=== PATIENT | male | born 1975 | race Caucasian/White ===

== ENCOUNTER 2019-11-29 15:48 | Emergency (ER) | payer OTHER ==
[~2019-11-29] VITALS: Ht 170 cm; Wt 90.0 kg
[2019-11-29] MEDS ORDERED: AMLO10TA4 PO (16:07)
--- NOTE | 2019-11-29 16:14 | ED Psychosocial ---
General Chief Complaint: Substance Abuse Stated Complaint: EXCESSIVE DRINKING, VOMITING Nursing Triage Note: PT STATES HE HAS DRANK 3 LITERS OF VODKA AND RUM IN THE LAST 2 DAYS. HX OF DRINKING AND HAD TO DETOX BEFORE. HAD BEEN CLEAN FOR 8 MONTHS Source: patient Exam Limitations: no limitations History of Present Illness Date Seen by Provider: Nov 29, 2019 Time Seen by Provider: 16:11 Initial Comments To ER with Reports of alcohol use that has been excessive and caused him some nausea and vomiting. He states he is currently homeless, travels around for work. He states he is working here on the [place] currently but would consider [place] to be his home. He is not suicidal or homicidal. Timing/Duration: constant Severity: moderate Allergies and Home Medications Allergies Coded Allergies: cephalexin (Verified Allergy, Intermediate, 11/29/19) Home Medications Amlodipine Besylate 10 Mg Tablet, 10 MG PO BID, (Reported) Patient Home Medication List Home Medication List Reviewed: Yes Review of Systems Constitutional: see HPI EENTM: see HPI Respiratory: no symptoms reported Cardiovascular: no symptoms reported Gastrointestinal: No abdominal pain; nausea, vomiting Musculoskeletal: no symptoms reported Skin: no symptoms reported Past Wynwmza-Tonkkk-Mxpxum Hx Patient Social History Alcohol Use: Regular Use Alcohol Beverage of Choice: Rum, Vodka Recreational Drug Use: No Smoking Status: Never a Smoker Recent Foreign Travel: No Contact w/Someone Who Travel: No Recent Infectious Disease Expo: No Recent Hopitalizations: No Seasonal Allergies Seasonal Allergies: No Past Medical History Surgeries: No Respiratory: No Cardiac: Yes Hypertension Neurological: No Genitourinary: No Gastrointestinal: No Musculoskeletal: No Endocrine: No HEENT: No Cancer: No Psychosocial: No Integumentary: No Physical Exam Vital Signs - First Documented 11/29/19 15:55 Temp 36.7 Pulse 86 Resp 20 B/P (MAP) 157/93 (114) Pulse Ox 100 O2 Delivery Room Air Capillary Refill : Less Than 3 Seconds Height, Weight, BMI Height: '" Weight: lbs. oz. kg; 31.00 BMI Method: General Appearance: WD/WN, no apparent distress, other (disheveled, cooperative. Walks from triage to room 10 with me without assistance. His speech is slurred, eyes are bloodshot.) Neck: non-tender, full range of motion Respiratory: normal breath sounds, no respiratory distress, no accessory muscle use Cardiovascular: regular rate, rhythm, no murmur Gastrointestinal: normal bowel sounds, soft Neurologic/Psychiatric: alert, normal mood/affect, oriented x 3 Appearance/Memory: appropriate insight, disheveled Behavior/Eye Contact: cooperative, good eye contact Thoughts/Hallucinations: no apparent hallucination Skin: normal color, warm/dry Progress/Results/Core Measures Results/Orders Lab Results Laboratory Tests Test 11/29/19 16:25 11/29/19 16:50 Range/Units White Blood Count 4.7 4.3-11.0 10^3/uL Red Blood Count 5.87 H 4.35-5.85 10^6/uL Hemoglobin 16.7 13.3-17.7 G/DL Hematocrit 47 40-54 % Mean Corpuscular Volume 81 80-99 FL Mean Corpuscular Hemoglobin 28 25-34 PG Mean Corpuscular Hemoglobin Concent 35 32-36 G/DL Red Cell Distribution Width 13.9 10.0-14.5 % Platelet Count 223 130-400 10^3/uL Mean Platelet Volume 10.2 7.4-10.4 FL Neutrophils (%) (Auto) 56 42-75 % Lymphocytes (%) (Auto) 33 12-44 % Monocytes (%) (Auto) 10 0-12 % Eosinophils (%) (Auto) 0 0-10 % Basophils (%) (Auto) 1 0-10 % Neutrophils # (Auto) 2.7 1.8-7.8 X 10^3 Lymphocytes # (Auto) 1.6 1.0-4.0 X 10^3 Monocytes # (Auto) 0.5 0.0-1.0 X 10^3 Eosinophils # (Auto) 0.0 0.0-0.3 10^3/uL Basophils # (Auto) 0.0 0.0-0.1 10^3/uL Prothrombin Time 14.1 12.2-14.7 SEC INR Comment 1.1 0.8-1.4 Sodium Level 144 135-145 MMOL/L Potassium Level 4.0 3.6-5.0 MMOL/L Chloride Level 105 98-107 MMOL/L Carbon Dioxide Level 27 21-32 MMOL/L Anion Gap 12 5-14 MMOL/L Blood Urea Nitrogen 8 7-18 MG/DL Creatinine 1.33 H 0.60-1.30 MG/DL Estimat Glomerular Filtration Rate 59 BUN/Creatinine Ratio 6 Glucose Level 110 H 70-105 MG/DL Calcium Level 10.2 H 8.5-10.1 MG/DL Corrected Calcium 9.8 8.5-10.1 MG/DL Total Bilirubin 0.6 0.1-1.0 MG/DL Aspartate Amino Transf (AST/SGOT) 70 H 5-34 U/L Alanine Aminotransferase (ALT/SGPT) 64 H 0-55 U/L Alkaline Phosphatase 115 40-136 U/L Total Protein 7.5 6.4-8.2 GM/DL Albumin 4.5 3.2-4.5 GM/DL Lipase 48 8-78 U/L Serum Alcohol 200 H <10 MG/DL Urine Color YELLOW Urine Clarity CLEAR Urine pH 8.5 5-9 Urine Specific [place] 1.015 L 1.016-1.022 Urine Protein NEGATIVE NEGATIVE Urine Glucose (UA) NEGATIVE NEGATIVE Urine Ketones NEGATIVE NEGATIVE Urine Nitrite NEGATIVE NEGATIVE Urine Bilirubin NEGATIVE NEGATIVE Urine Urobilinogen 0.2 < = 1.0 MG/DL Urine Leukocyte Esterase NEGATIVE NEGATIVE Urine RBC (Auto) NEGATIVE NEGATIVE Urine RBC NONE /HPF Urine WBC NONE /HPF Urine Squamous Epithelial Cells RARE /HPF Urine Crystals PRESENT H /LPF Urine Amorphous Sediment RARE OZZY PHOSPHATE H /LPF Urine Bacteria TRACE /HPF Urine Casts NONE /LPF Urine Mucus SMALL H /LPF Urine Culture Indicated NO Urine Opiates Screen NEGATIVE NEGATIVE Urine Oxycodone Screen NEGATIVE NEGATIVE Urine Methadone Screen NEGATIVE NEGATIVE Urine Propoxyphene Screen NEGATIVE NEGATIVE Urine Barbiturates Screen NEGATIVE NEGATIVE Ur Tricyclic Antidepressants Screen NEGATIVE NEGATIVE Urine Phencyclidine Screen NEGATIVE NEGATIVE Urine Amphetamines Screen NEGATIVE NEGATIVE Urine Methamphetamines Screen NEGATIVE NEGATIVE Urine Benzodiazepines Screen NEGATIVE NEGATIVE Urine Cocaine Screen NEGATIVE NEGATIVE Urine Cannabinoids Screen NEGATIVE NEGATIVE My Orders Orders - TOMA FARAH APRN Alcohol (11/29/19 16:01) Cbc With Automated Diff (11/29/19 16:01) Comprehensive Metabolic Panel (11/29/19 16:01) Protime With Inr (11/29/19 16:01) Ua Culture If Indicated (11/29/19 16:01) Drug Screen Stat (Urine) (11/29/19 16:01) Lipase (11/29/19 16:01) Ns Iv 1000 Ml (Sodium Chloride 0.9%) (11/29/19 16:15) Ondansetron Injection (Zofran Injectio (11/29/19 16:15) Famotidine Injection (Pepcid Injection) (11/29/19 16:15) Antacid Suspension (Mylanta Suspension (11/29/19 16:15) Lidocaine 2% Viscous 15 Ml (Xylocaine Vi (11/29/19 16:15) Medications Given in ED Current Medications Medications Dose Ordered Sig/Talha Route Start Time Stop Time Status Last Admin Dose Admin Famotidine 20 mg ONCE ONCE IVP 11/29/19 16:15 11/29/19 16:16 DC 11/29/19 16:26 20 MG Ondansetron HCl 8 mg ONCE ONCE IVP 11/29/19 16:15 11/29/19 16:16 DC 11/29/19 16:26 8 MG Vital Signs/I&O 11/29/19 15:55 Temp 36.7 Pulse 86 Resp 20 B/P (MAP) 157/93 (114) Pulse Ox 100 O2 Delivery Room Air Blood Pressure Mean: 114 Departure Impression Primary Impression: Alcohol intoxication Qualified Codes: F10.920 - Alcohol use, unspecified with intoxication, uncomplicated Disposition: 01 HOME, SELF-CARE Condition: Stable Departure-Patient Inst. Decision time for Depature: 16:13 Referrals: NO,LOCAL PHYSICIAN (PCP) Primary Care Physician CHACHA IRAHETA MD Patient Instructions: ALCOHOL AND SUBSTANCE ABUSE Add. Discharge Instructions: 1. Follow-up with Dr. Chacha Iraheta at [facility] to discuss treatment options for your alcohol use disorder. Scripts Ondansetron (Ondansetron Odt) 8 Mg Tab.rapdis 8 MG PO Q6H PRN for NAUSEA/VOMITING, #10 TAB Prov: TOMA FARAH APRN 11/29/19 TOMA FARAH APRN Nov 29, 2019 16:14
[2019-11-29] MEDS ORDERED: NS IV 1000 ML 1,000 ML IV SCH (16:15)
[2019-11-29] MEDS ORDERED: FAMOTIDINE 20MG/2ML IV (PEPCID) IVP ONE (16:15)
[2019-11-29] MEDS ORDERED: LIDOCAINE 2% VISCOUS 15 ML UDC PO ONE (16:15)
[2019-11-29] MEDS ORDERED: ONDANSETRON 4 MG/2 ML (SDV) Z0FRAN IVP ONE (16:15)
[2019-11-29] MEDS ORDERED: ANTACID SUSP 30 ML UDC (MYLANTA) PO ONE (16:15)
[2019-11-29 16:33] LABS: BASOPHILS % (AUTO) 1 % (0-10); EOSINOPHILS % (AUTO) 0 % (0-10); HEMATOCRIT 47 % (40-54); HEMOGLOBIN 16.7 G/DL (13.3-17.7); LYMPHOCYTES # (AUTO) 1.6 X 10^3 (1.0-4.0); LYMPHOCYTES % (AUTO) 33 % (12-44); MEAN CORPUSCULAR HEMOGLOBIN 28 PG (25-34); MEAN CORPUSCULAR HGB CONC 35 G/DL (32-36); MEAN CORPUSCULAR VOLUME 81 FL (80-99); MEAN PLATELET VOLUME 10.2 FL (7.4-10.4); MONOCYTES # (AUTO) 0.5 X 10^3 (0.0-1.0); MONOCYTES % (AUTO) 10 % (0-12); NEUTROPHILS # (AUTO) 2.7 X 10^3 (1.8-7.8); NEUTROPHILS % (AUTO) 56 % (42-75); PLATELET COUNT 223 10^3/uL (130-400); RED CELL DISTRIBUTION WIDTH 13.9 % (10.0-14.5); WHITE BLOOD COUNT 4.7 10^3/uL (4.3-11.0)
[2019-11-29 16:43] LABS: INR 1.1 (0.8-1.4); PROTHROMBIN TIME PATIENT 14.1 SEC (12.2-14.7)
[2019-11-29 16:49] LABS: ALBUMIN 4.5 GM/DL (3.2-4.5); BILIRUBIN,TOTAL 0.6 MG/DL (0.1-1.0); CALCIUM 10.2 MG/DL (8.5-10.1); CREATININE SERUM 1.33 MG/DL (0.60-1.30); TOTAL PROTEIN 7.5 GM/DL (6.4-8.2)
[2019-11-29 17:07] LABS: BILIRUBIN,URINE NEGATIVE (NEGATIVE); CLARITY,URINE CLEAR; COLOR,URINE YELLOW; GLUCOSE, URINE (UA) NEGATIVE (NEGATIVE); KETONES,URINE NEGATIVE (NEGATIVE); LEUKOCYTE ESTERASE ,URINE NEGATIVE (NEGATIVE); NITRITE,URINE NEGATIVE (NEGATIVE); PH,URINE 8.5 (5-9); PROTEIN,URINE NEGATIVE (NEGATIVE)
[2019-11-29 17:22] LABS: AMPHETAMINE SCREEN, URINE NEGATIVE (NEGATIVE); BARBITURATE SCREEN URINE NEGATIVE (NEGATIVE); BENZODIAZEPINES SCREEN URINE NEGATIVE (NEGATIVE); CANNABINOID SCREEN, URINE NEGATIVE (NEGATIVE); COCAINE SCREEN URINE NEGATIVE (NEGATIVE); METHADONE STAT NEGATIVE (NEGATIVE); METHAMPHETAMINE SCREEN URINE S NEGATIVE (NEGATIVE); OPIATE SCREEN URINE NEGATIVE (NEGATIVE); OXYCODONE STAT NEGATIVE (NEGATIVE); PROPOXYPHENE STAT NEGATIVE (NEGATIVE); TRICYCLIC ANTIDEPRESSANTS SCRE NEGATIVE (NEGATIVE)
[2019-11-29 17:24] LABS: AMORPHOUS SEDIMENT,UR RARE AMOR PHOSPHATE /LPF; BACTERIA,URINE TRACE /HPF; SQUAMOUS EPITHELIAL CELL,UR RARE /HPF
[2019-11-29] MEDS ORDERED: ONDA8TAB13 PO (17:29)
[2019-11-29] MEDS ORDERED: LORA-405 PO (17:29)
[2019-11-29] MEDS ORDERED: PROMETHAZINE INJ 25 MG/ML (PHENERGAN) AMP IVP ONE (17:45)
[2019-11-29] MEDS ORDERED: RX-LORAZEPAM (ATIVAN) 0.5 MG TAB PPK#4 PO STA (17:45)
[2019-11-29] MEDS ORDERED: LORazepam INJ 2 MG/ML (ATIVAN) VIAL IVP ONE (17:45)
[2019-11-29 18:15] VITALS: BP 138/107
--- OUTSIDE RECORDS SUMMARY | 2019-12-03 21:16 | XMS REPORT | Continuity of Care Document ---
Author Organization Unknown Address Unknown Phone Unavailable Allergies Active Description Code Type Severity Reaction Onset Reported/Identified Relationship to Patient Clinical Status Yes cephalexin [id number] Drug Allerg y Moderate N/A 11/29/2019 Medications There is no data. Problems There is no data. Procedures There is no data. Results Test Result Range Complete blood count (CBC) with automate d white blood cell (WBC) differential - 11/29/19 16:25 Blood leukocytes automated count (number/volume) 4.7 10*3/uL 4.3-11.0 Blood erythrocytes automated count (number/volume) 5.87 10*6/uL 4.35-5.85 Venous blood hemoglobin measurement (mass/volume) 16.7 g/dL 13.3-17.7 Blood hematocrit (volume fraction) 47 % 40-54 Automated erythrocyte mean corpuscular volume 81 [ foz_us] 80-99 Automated erythrocyte mean corpuscular h emoglobin (mass per erythrocyte) 28 pg 25-34 Automated erythrocyte mean corpuscular h emoglobin concentration measurement (mass/volume) 35 g/dL 32-36 Automated erythrocyte distribution width ratio 13. 9 % 10.0- 14.5 Automated blood platelet count (count/volume) 223 10*3/uL 130-400 Automated blood platelet mean volume measurement 10.2 [foz_us] 7.4-10.4 Automated blood neutrophils/100 leukocytes 56 % 42-75 Automated blood lymphocytes/100 leukocytes 33 % 12-44 Blood monocytes/100 leukocytes 10 % 0-12 Automated blood eosinophils/100 leukocytes 0 % 0-10 Automated blood basophils/100 leukocytes 1 % 0-10 Blood neutrophils automated count (number/volume) 2.7 10*3 1.8-7.8 Blood lymphocytes automated count (number/volume) 1.6 10*3 1.0-4.0 Blood monocytes automated count (number/volume) 0. 5 10*3 0.0-1.0 Automated eosinophil count 0.0 10*3/uL 0 .0-0.3 Automated blood basophil count (count/volume) 0.0 10*3/uL 0.0-0.1 PT panel in platelet poor plasma by coag ulation assay - 11/29/19 16:25 Prothrombin time (PT) in platelet poor plasma by coagu lation assay 14.1 s 12.2-14.7 INR in platelet poor plasma or blood by coagulation as say 1.1 0.8-1.4 Comprehensive metabolic panel - 11/29/19 16:25 Serum or plasma sodium measurement (moles/volume) 144 mmol/L 135-145 Serum or plasma potassium measurement (moles/volume) 4.0 mmol/L 3.6-5.0 Serum or plasma chloride measurement (moles/volume) 105 mmol/L 98-107 Carbon dioxide 27 mmol/L 21-32 Serum or plasma anion gap determination (moles/volume) 12 mmol/L 5-14 Serum or plasma urea nitrogen measurement (mass/volume ) 8 mg/dL 7-18 Serum or plasma creatinine measurement (mass/volume) 1.33 mg/dL 0.60-1.30 Serum or plasma urea nitrogen/creatinine mass ratio 6 NRG Serum or plasma creatinine measurement w ith calculation of estimated glomerular filtration rate 59 NRG Serum or plasma glucose measurement (mass/volume) 110 mg/dL 70-105 Serum or plasma calcium measurement (mass/volume) 10.2 mg/dL 8.5-10.1 Serum or plasma total bilirubin measurement (mass/volu me) 0.6 mg/dL 0.1-1.0 Serum or plasma alkaline phosphatase mindy surement (enzymatic activity/volume) 115 U/L 40-136 Serum or plasma aspartate aminotransfera se measurement (enzymatic activity/volume) 70 U/L 5-34 Serum or plasma alanine aminotransferase measurement (enzymatic activity/volume) 64 U/L 0-55 Serum or plasma protein measurement (mass/volume) 7.5 g/dL 6.4-8.2 Serum or plasma albumin measurement (mass/volume) 4.5 g/dL 3.2-4.5 CALCIUM CORRECTED 9.8 mg/dL 8.5-10.1 Lipase - 11/29/19 16:25 Lipase 48 U/L 8-78 Serum or plasma ethanol measurement (mas s/volume) - 11/29/19 16:25 Serum or plasma ethanol measurement (mass/volume) 200 mg/dL <10 Urine drug screening test - 11/29/19 16: 50 Urine phencyclidine detection by screening method NEGATIVE NEGATIVE Urine benzodiazepines detection by screening method NEGATIVE NEGATIVE Urine cocaine detection NEGATIVE NEGATI VE Urine amphetamines detection by screening method N EGATIVE NEGATIVE Urine methamphetamine detection by screening method NEGATIVE NEGATIVE Urine cannabinoids detection by screening method N EGATIVE NEGATIVE Urine opiates detection by screening method NEGATI VE NEGATIVE Urine barbiturates detection NEGATIVE N EGATIVE Screening urine tricyclic antidepressants detection NEGATIVE NEGATIVE Urine methadone detection by screening method NEGA TIVE NEGATIVE Urine oxycodone detection NEGATIVE NEGA TIVE Urine propoxyphene detection NEGATIVE N EGATIVE Complete urinalysis with reflex to cultu re - 11/29/19 16:50 Urine color determination YELLOW NRG Urine clarity determination CLEAR NR G Urine pH measurement by test strip 8.5 5-9 Specific gravity of urine by test strip 1.015 1.016-1.022 Urine protein assay by test strip, semi-quantitative NEGATIVE NEGATIVE Urine glucose detection by automated test strip NE GATIVE NEGATIVE Erythrocytes detection in urine sediment by light micr oscopy NEGATIVE NEGATIVE Urine ketones detection by automated test strip NE GATIVE NEGATIVE Urine nitrite detection by test strip NEGATIVE NEGATIVE Urine total bilirubin detection by test strip NEGA TIVE NEGATIVE Urine urobilinogen measurement by automated test strip (mass/volume) 0.2 mg/dL < = 1.0 Urine leukocyte esterase detection by dipstick NEG ATIVE NEGATIVE Automated urine sediment erythrocyte cou nt by microscopy (number/high power field) NONE NRG Automated urine sediment leukocyte count by microscopy (number/high power field) NONE NRG Bacteria detection in urine sediment by light microsco py TRACE NRG Squamous epithelial cells detection in u rine sediment by light microscopy RARE NRG Crystals detection in urine sediment by light microsco py PRESENT NRG Casts detection in urine sediment by light microscopy NONE NRG Mucus detection in urine sediment by light microscopy SMALL NRG Complete urinalysis with reflex to culture NO NRG Amorphous sediment detection in urine sediment by ligh t microscopy RARE OZZY PHOSPHATE NRG Encounters ACCT No. Visit Date/Time Discharge Status Pt. Type Provider Facility Loc./Unit Complaint [id number] 10/28/2019 11:30:00 10/28/2019 23:59: 59 CLS Outpatient MELITON LAC, SHAYY [facility] [id number] 11/29/2019 15:51:00 020 18:15:00 DIS Emergency TOMA FARAH APRN Via [facility] ER EXCESSIVE DRINKING, ALIYA FARNSWORTH
== END 2019-11-29 18:15 | disposition home or self-care (01) ==
LOC: ER 15:51
DX: F10.929 Alcohol use, unspecified with intoxication, unspecified (principal); I10 Essential (primary) hypertension; Z88.1 Allergy status to other antibiotic agents; Y90.7 Blood alcohol level of 200-239 mg/100 ml
CPT/HCPCS: 36415; 80053; 80306; 80320; 81000; 83690; 85025; 85610

== ENCOUNTER 2020-02-15 02:14 | Emergency (ER) | payer OTHER ==
[~2020-02-15] VITALS: Ht 170.1 cm; Wt 90.7 kg
[~2020-02-15 02:14] MED LIST: AMLO10TA4 PO; LORA-405 PO; ONDA8TAB13 PO
--- OUTSIDE RECORDS SUMMARY | 2020-02-15 02:25 | XMS REPORT | Continuity of Care Document ---
Author Organization Unknown Address Unknown Phone Unavailable Allergies Active Description Code Type Severity Reaction Onset Reported/Identified Relationship to Patient Clinical Status Yes cephalexin [id number] Drug Allerg y Moderate N/A 11/29/2019 Medications There is no data. Problems Date Dx Coded Attending Type Code Diagnosis Diagnosed By 12/05/2019 TOMA FARAH APRN Ot F10.929 ALCOHOL USE, UNSPECIFIED WITH INTOXICATI 12/05/2019 TOMA FARAH APRN Ot I10 ESSENTIAL (PRIMARY) HYPERTENSION 12/05/2019 TOMA FARAH APRN Ot Y90 .7 BLOOD ALCOHOL LEVEL OF 200-239 MG/100 ML 12/05/2019 TOMA FARAH APRN Ot Z88 .1 ALLERGY STATUS TO OTHER ANTIBIOTIC AGENT Procedures There is no data. Results Test [...] Status Pt. Type Provider Facility Loc./Unit Complaint [id number] 01/14/2020 16:20:00 01/14/2020 23:59: 59 CLS Outpatient MELITON KENZIE [facility]AYY [facility] [id number] 11/29/2019 15:51:00 020 18:15:00 DIS Outpatient TOMA FARAH APRN Via [facility] ER EXCESSIVE DRINKING, VO MITING [id number] 02/15/2020 02:17:[address] Emergency JOSEFA ZARATE DO [facility] ER DETOX
[2020-02-15] MEDS ORDERED: LACTATED RINGERS 1,000 ML IV ONE ×2 (02:37→03:26)
[2020-02-15] MEDS ORDERED: PANTOPRAZOLE 40 MG (PROTONIX) VIAL IV ONE (03:00)
[2020-02-15] MEDS ORDERED: ONDANSETRON 4 MG/2 ML (SDV) Z0FRAN IVP ONE (03:00)
[2020-02-15 03:17] LABS: BASOPHILS % (AUTO) 1 % (0-10); EOSINOPHILS % (AUTO) 0 % (0-10); HEMATOCRIT 46 % (40-54); HEMOGLOBIN 16.2 G/DL (13.3-17.7); LYMPHOCYTES # (AUTO) 1.6 X 10^3 (1.0-4.0); LYMPHOCYTES % (AUTO) 27 % (12-44); MEAN CORPUSCULAR HEMOGLOBIN 28 PG (25-34); MEAN CORPUSCULAR HGB CONC 35 G/DL (32-36); MEAN CORPUSCULAR VOLUME 81 FL (80-99); MEAN PLATELET VOLUME 9.9 FL (7.4-10.4); MONOCYTES # (AUTO) 0.6 X 10^3 (0.0-1.0); MONOCYTES % (AUTO) 11 % (0-12); NEUTROPHILS # (AUTO) 3.8 X 10^3 (1.8-7.8); NEUTROPHILS % (AUTO) 62 % (42-75); PLATELET COUNT 237 10^3/uL (130-400); RED CELL DISTRIBUTION WIDTH 15.7 % (10.0-14.5)
[2020-02-15 03:31] LABS: CHLORIDE 105 MMOL/L (98-107)
[2020-02-15 03:32] LABS: ALBUMIN 4.1 GM/DL (3.2-4.5); POTASSIUM 3.6 MMOL/L (3.6-5.0); SODIUM 141 MMOL/L (135-145)
[2020-02-15 03:33] LABS: CALCIUM 8.5 MG/DL (8.5-10.1)
[2020-02-15 03:34] LABS: GLUCOSE 170 MG/DL (70-105)
[2020-02-15 03:35] LABS: CARBON DIOXIDE 22 MMOL/L (21-32); TOTAL PROTEIN 6.8 GM/DL (6.4-8.2)
[2020-02-15 03:36] LABS: BILIRUBIN,TOTAL 1.3 MG/DL (0.1-1.0)
[2020-02-15 03:38] LABS: BILIRUBIN,URINE NEGATIVE (NEGATIVE); CLARITY,URINE CLEAR; COLOR,URINE YELLOW; GLUCOSE, URINE (UA) NEGATIVE (NEGATIVE); KETONES,URINE NEGATIVE (NEGATIVE); LEUKOCYTE ESTERASE ,URINE NEGATIVE (NEGATIVE); NITRITE,URINE NEGATIVE (NEGATIVE); PH,URINE 7.5 (5-9); PROTEIN,URINE 1+ (NEGATIVE)
[2020-02-15 03:38] LABS: ALKALINE PHOSPHATASE 89 U/L (40-136); CREATININE SERUM 1.23 MG/DL (0.60-1.30); GFR ESTIMATED > 60
[2020-02-15 03:39] LABS: BUN/CREATININE RATIO 7
[2020-02-15 03:41] LABS: ALANINE AMINOTRANSFERASE 81 U/L (0-55); SALICYLATE < 5.0 MG/DL (5.0-20.0)
[2020-02-15 03:46] LABS: ACETAMINOPHEN < 10 UG/ML (10-30)
[2020-02-15 03:52] LABS: BACTERIA,URINE NEGATIVE /HPF; SQUAMOUS EPITHELIAL CELL,UR RARE /HPF; URINE OTHER NO /HPF
[2020-02-15] MEDS ORDERED: LORazepam INJ 2 MG/ML (ATIVAN) VIAL ONE (03:54)
[2020-02-15 03:58] LABS: AMPHETAMINE SCREEN, URINE NEGATIVE (NEGATIVE); BENZODIAZEPINES SCREEN URINE NEGATIVE (NEGATIVE); COCAINE SCREEN URINE NEGATIVE (NEGATIVE)
[2020-02-15 03:59] LABS: BARBITURATE SCREEN URINE NEGATIVE (NEGATIVE); CANNABINOID SCREEN, URINE NEGATIVE (NEGATIVE); METHADONE STAT NEGATIVE (NEGATIVE); METHAMPHETAMINE SCREEN URINE S NEGATIVE (NEGATIVE); OPIATE SCREEN URINE NEGATIVE (NEGATIVE); OXYCODONE STAT NEGATIVE (NEGATIVE); PROPOXYPHENE STAT NEGATIVE (NEGATIVE); TRICYCLIC ANTIDEPRESSANTS SCRE NEGATIVE (NEGATIVE)
[2020-02-15] MEDS ORDERED: LORazepam INJ 2 MG/ML (ATIVAN) VIAL IVP ONE (04:00)
[2020-02-15 04:01] LABS: TSH (THYROID ANALYZER) 1.15 UIU/ML (0.35-4.94)
[2020-02-15] MEDS ORDERED: cloNIDine 0.2 MG (CATAPRES) TAB PO ONE (04:15)
[2020-02-15] MEDS ORDERED: RX-LORAZEPAM (ATIVAN) 0.5 MG TAB PPK#4 PO STA (04:55)
[2020-02-15] MEDS ORDERED: RX-CLOnidine 0.1 MG TAB PPK# 6 PO STA (04:55)
--- NOTE | 2020-02-15 05:00 | ED Psychosocial ---
General Chief Complaint: Substance Abuse Stated Complaint: DETOX Nursing Triage Note: PATIENT STATES THAT HE IS HERE BECAUSE OF "ALCOHOL DETOX". HE IS UNABLE TO RECALL WHEN HIS LAST DRINK WAS. HE DENIES CURRENT DRUG ABUSE, BUT SAID IN THE PAST HE HAS USED MARIJUANA. Source: patient (VERY DIFFICULT HISTORIAN AND SPEECH IS VERY ERRATIC) History of Present Illness Date Seen by Provider: February 15, 2020 Time Seen by Provider: 02:35 Initial Comments PT ARRIVES-STATES HE WALKED HERE "FROM HIS APARTMENT [place]CROSS [place] [address]" PT STATES HE IS HERE FOR "DETOX" PT IS UNABLE TO STATE ANYTHING ABOUT HOW MUCH HE DRINKS, WHAT HE DRINKS, HOW LONG HE HAS BEEN DRINKING, OR WHEN HE LAST HAD ANY ALCOHOL, AND ANSWERS "I DON'T KNOW" TO MOST QUESTIONS HE IS ASKED LATER, AT ONE POINT, HE STATES HE DRINKS "A LITER" OF "ANYTHING" A DAY PT DOES STATE HE WAS IN SOME SORT OF REHAB IN IN [place] PT IS UNABLE TO STATE IF HE HAS EVER HAD A SEIZURE OR "DT'S" IF HE STOPS DRINKING PT DENIES ANY HISTORY OF DRUG USE, BUT ON PREVIOUS VISIT, HE HAD REPORTED THAT HE USED MARIJUANA PT STATES TODAY THAT HE IS NOT HOMELESS AND HE "WORKS IN [employer]" STATES THAT HE DRIVES TO WORK AND "LIVES IN AN APARTMENT [place] [address]" HE STATES HE DID NOT WORK TODAY, BUT CANNOT STATE WHEN HE LAST WORKED. PT WAS HERE 11/29/19 FOR ALCOHOL INTOXICATION, AND HAD REPORTED AT THAT TIME HE WAS HOMELESS, AND "TRAVELS AROUND FOR WORK" AND HAD BEEN "BUILDING [place]", AND STATED THAT HE CONSIDERED [place] HIS HOME. PCP: CHALINO-MALDONADO Allergies and Home Medications Allergies Coded Allergies: cephalexin (Verified Allergy, Intermediate, 11/29/19) Home Medications Amlodipine Besylate 10 Mg Tablet, 10 MG PO BID, (Reported) Patient Home Medication List Home Medication List Reviewed: Yes Review of Systems Constitutional: no symptoms reported Respiratory: no symptoms reported Cardiovascular: no symptoms reported Gastrointestinal: no symptoms reported; No nausea, No vomiting Genitourinary: no symptoms reported Musculoskeletal: no symptoms reported Skin: no symptoms reported Psychiatric/Neurological: See HPI, Anxiety Past Grnzbou-Jtwmdr-Qwhjbm Hx Past Med/Social Hx: Reviewed and Corrections made Patient Social History Alcohol Use: Regular Use Number of Drinks Today: FF Alcohol Beverage of Choice: Rum, Cheap Liquor, Vodka Recreational Drug Use: Yes (THC) Drug of Choice: PAST MARIJUANA USE Smoking Status: Former Smoker Type Used: Cigarettes Recent Foreign Travel: No Contact w/Someone Who Travel: No Recent Infectious Disease Expo: No Recent Hopitalizations: No Physical Abuse: No Sexual Abuse: No Mistreated: No Fear: No Seasonal Allergies Seasonal Allergies: No Past Medical History Surgeries: No Respiratory: No Cardiac: Yes (HAS NOT BEEN TAKING HIS MEDICATION-NORVASC) Hypertension Neurological: No Genitourinary: No Gastrointestinal: No Musculoskeletal: No Endocrine: No HEENT: No Cancer: No Psychosocial: Yes (ALCOHOLISM) Integumentary: No Blood Disorders: No Adverse Reaction/Blood Tranf: No Family Medical History Alcoholism 19 FATHER Hypertension 19 FATHER Physical Exam Vital Signs - First Documented 02/15/20 02/15/20 02:31 05:20 Temp 36.9 Pulse 120 Resp 24 B/P (MAP) 145/117 (126) Pulse Ox 98 O2 Delivery Room Air Capillary Refill : Less Than 3 Seconds Height, Weight, BMI Height: '" Weight: lbs. oz. kg; 31.00 BMI Method: General Appearance: WD/WN, no apparent distress, other (UNKEMPT, CONSTANT MOVEMENTS--CANNOT SIT, STAND OR LAY STILL. 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 DIFFICULT TO DETERMINE ORIENTATION; NO TREMORS NOTED. ) Appearance/Memory: disheveled, impaired recent memory, impaired remote memory Behavior/Eye Contact: cooperative, increased rate of speech; No belligerent, No compulsive Thoughts/Hallucinations: no apparent hallucination, other (NO SUICIDAL IDEATIONS) Skin: normal color, warm/dry Progress/Results/Core Measures Results/Orders Lab Results My Orders Medications Given in ED Vital Signs/I&O Blood Pressure Mean: 126 Progress Progress Note : Progress Note NO DETERIORATION IN PT'S CONDITION PT WAS GIVEN MEDICATION FOR BLOOD PRESSURE AND TACHYCARDIA WITH IMPROVEMENT--PT IS SUPPOSED TO TAKE NORVASC, BUT HAS NO IDEA WHEN HE LAST TOOK ANY MEDICATION ADVISED PT THAT WE DID NOT HAVE A "DETOX" UNIT HERE, AND HE DID NOT OTHERWISE MEET CRITERIA FOR HOSPITAL ADMIT HERE. ADVISED THAT HE WAS ESTABLISHED WITH [facility], I DISCUSSED WITH HIM THAT THEY HAVE AN OUTPATIENT TREATMENT PROGRAM. SENT HOME WITH ATIVAN AND CLONIDINE TAKE HOME PACKS, AND ADVISED PT TO FOLLOW UP WITH [facility] LATER TODAY Initial ECG Impression Date: February 15, 2020 Initial ECG Impression Time: 02:54 Initial ECG Rate: 99 Initial ECG Rhythm: Normal Sinus Initial ECG Impression: Normal Departure Impression Primary Impression: Alcohol abuse Additional Impression: HTN (hypertension) Disposition: 01 HOME, SELF-CARE Condition: Stable Departure-Patient Inst. Referrals: [facility] Patient Instructions: ALCOHOL AND SUBSTANCE ABUSE, High Blood Pressure (DC) Add. Discharge Instructions: TAKE YOUR BLOOD PRESSURE MEDICATION EVERY DAY PRESCRIBED NO ALCOHOL!!!!! FOLLOW UP WITH [facility] TODAY FOR OUTPATIENT ALCOHOL AND DRUG ABUSE TREATMENT All discharge instructions reviewed with patient and/or family. Voiced understanding. JOSEFA ZARATE DO February 15, 2020 05:00
[2020-02-15 05:20] VITALS: BP 140/105
== END 2020-02-15 05:24 | disposition home or self-care (01) ==
LOC: EDUNIT# 02:14 → ER 02:17
DX: F10.229 Alcohol dependence with intoxication, unspecified (principal); I10 Essential (primary) hypertension; Z88.1 Allergy status to other antibiotic agents; Z87.891 Personal history of nicotine dependence; Z91.14 Patient's other noncompliance with medication regimen; Z82.49 Family history of ischemic heart disease and other diseases of the circulatory system
CPT/HCPCS: 36415; 80053; 80306; 80320; 80329; 81000; 84443; 85025; 93005; 93041

== ENCOUNTER 2020-04-23 01:10 | Emergency (ER) | payer OTHER ==
[~2020-04-23] VITALS: Ht 172 cm; Wt 90.7 kg
--- OUTSIDE RECORDS SUMMARY | 2020-04-23 01:18 | XMS REPORT | Continuity of Care Document ---
Author Organization Unknown Address Unknown Phone Unavailable Allergies Active Description Code Type Severity Reaction Onset Reported/Identified Relationship to Patient Clinical Status Yes cephalexin [id number] Drug Allerg y Moderate N/A 11/29/2019 Medications There is no data. Problems Date Dx Coded Attending Type Code Diagnosis Diagnosed By 11/29/2019 TOMA FARAH APRN Ot F10.929 ALCOHOL USE, UNSPECIFIED WITH INTOXICATI 11/29/2019 TOMA FARAH APRN Ot I10 ESSENTIAL (PRIMARY) HYPERTENSION 11/29/2019 TOMA FARAH APRN Ot Y90 .7 BLOOD ALCOHOL LEVEL OF 200-239 MG/100 ML 11/29/2019 TOMA FARAH APRN Ot Z88 .1 ALLERGY STATUS TO OTHER ANTIBIOTIC AGENT 12/05/2019 TOMA FARAH APRN Ot F10.929 ALCOHOL USE, UNSPECIFIED WITH INTOXICATI 12/05/2019 TOMA FARAH RIVET HE[employer] GAS Ot I10 ESSENTIAL (PRIMARY) HYPERTENSION 12/05/2019 TOMA FARAH APRN Ot Y90 .7 BLOOD ALCOHOL LEVEL OF 200-239 MG/100 ML 12/05/2019 TOMA FARAH APRN Ot Z88 .1 ALLERGY STATUS TO OTHER ANTIBIOTIC AGENT 02/15/2020 JOE ZARATE DOA Valeriy Ot F10.129 ALCOHOL ABUSE WITH INTOXICATION, UNSPECI 02/15/2020 JOSEFA ZARATE DO Ot F10.229 ALCOHOL DEPENDENCE WITH INTOXICATION, UN 02/15/2020 JOSEFA ZARATE DO Ot I10 ESSENTIAL (PRIMARY) HYPERTENSION 02/15/2020 JOSEFA ZARATE DO Ot Z82.49 FAMILY HX OF ISCHEM HEART DIS AND OTH DI 02/15/2020 JOSEFA ZARATE DO Ot Z87.891 PERSONAL HISTORY OF NICOTINE DEPENDENCE 02/15/2020 JOSEFA ZARATE DO Ot Z88.1 ALLERGY STATUS TO OTHER ANTIBIOTIC AGENT 02/15/2020 JOE ZARATE DOA Valeriy Ot Z91.14 PATIENT'S OTHER NONCOMPLIANCE WITH MEDIC Procedures There is no data. Results Test [...] ligh t microscopy RARE OZZY PHOSPHATE NRG Complete blood count (CBC) with automate d white blood cell (WBC) differential - 02/15/20 03:07 Blood leukocytes automated count (number/volume) 6.0 10*3/uL 4.3-11.0 Blood erythrocytes automated count (number/volume) 5.73 10*6/uL 4.35-5.85 Venous blood hemoglobin measurement (mass/volume) 16.2 g/dL 13.3-17.7 Blood hematocrit (volume fraction) 46 % 40-54 Automated erythrocyte mean corpuscular volume 81 [ foz_us] 80-99 Automated erythrocyte mean corpuscular h emoglobin (mass per erythrocyte) 28 pg 25-34 Automated erythrocyte mean corpuscular h emoglobin concentration measurement (mass/volume) 35 g/dL 32-36 Automated erythrocyte distribution width ratio 15. 7 % 10.0- 14.5 Automated blood platelet count (count/volume) 237 10*3/uL 130-400 Automated blood platelet mean volume measurement 9.9 [foz_us] 7.4-10.4 Automated blood neutrophils/100 leukocytes 62 % 42-75 Automated blood lymphocytes/100 leukocytes 27 % 12-44 Blood monocytes/100 leukocytes 11 % 0-12 Automated blood eosinophils/100 leukocytes 0 % 0-10 Automated blood basophils/100 leukocytes 1 % 0-10 Blood neutrophils automated count (number/volume) 3.8 10*3 1.8-7.8 Blood lymphocytes automated count (number/volume) 1.6 10*3 1.0-4.0 Blood monocytes automated count (number/volume) 0. 6 10*3 0.0-1.0 Automated eosinophil count 0.0 10*3/uL 0 .0-0.3 Automated blood basophil count (count/volume) 0.0 10*3/uL 0.0-0.1 Comprehensive metabolic panel - 02/15/20 03:07 Serum or plasma sodium measurement (moles/volume) 141 mmol/L 135-145 Serum or plasma potassium measurement (moles/volume) 3.6 mmol/L 3.6-5.0 Serum or plasma chloride measurement (moles/volume) 105 mmol/L 98-107 Carbon dioxide 22 mmol/L 21-32 Serum or plasma anion gap determination (moles/volume) 14 mmol/L 5-14 Serum or plasma urea nitrogen measurement (mass/volume ) 8 mg/dL 7-18 Serum or plasma creatinine measurement (mass/volume) 1.23 mg/dL 0.60-1.30 Serum or plasma urea nitrogen/creatinine mass ratio 7 NRG Serum or plasma creatinine measurement w ith calculation of estimated glomerular filtration rate > NRG Serum or plasma glucose measurement (mass/volume) 170 mg/dL 70-105 Serum or plasma calcium measurement (mass/volume) 8.5 mg/dL 8.5-10.1 Serum or plasma total bilirubin measurement (mass/volu me) 1.3 mg/dL 0.1-1.0 Serum or plasma alkaline phosphatase mindy surement (enzymatic activity/volume) 89 U/L 40-136 Serum or plasma aspartate aminotransfera se measurement (enzymatic activity/volume) 60 U/L 5-34 Serum or plasma alanine aminotransferase measurement (enzymatic activity/volume) 81 U/L 0-55 Serum or plasma protein measurement (mass/volume) 6.8 g/dL 6.4-8.2 Serum or plasma albumin measurement (mass/volume) 4.1 g/dL 3.2-4.5 CALCIUM CORRECTED 8.4 mg/dL 8.5-10.1 Serum or plasma thyrotropin measurement by detection limit <=0.05 miu/l (units/volume) - 02/15/20 03:07 Serum or plasma thyrotropin measurement by detection limit <=0.05 miu/l (units/volume) 1.15 u[iU]/mL 0.35-4.94 Serum or plasma salicylates measurement (mass/volume) - 02/15/20 03:07 Serum or plasma salicylates measurement (mass/volume) < mg/dL 5.0-20.0 Serum or plasma acetaminophen measuremen t (mass/volume) - 02/15/20 03:07 Serum or plasma acetaminophen measurement (mass/volume ) < ug/mL 10-30 Serum or plasma ethanol measurement (mas s/volume) - 02/15/20 03:07 Serum or plasma ethanol measurement (mass/volume) 162 mg/dL <10 Complete urinalysis with reflex to cultu re - 02/15/20 03:35 Urine color determination YELLOW NRG Urine clarity determination CLEAR NR G Urine pH measurement by test strip 7.5 5-9 Specific gravity of urine by test strip 1.015 1.016-1.022 Urine protein assay by test strip, semi-quantitative 1+ NEGATIVE Urine glucose detection by automated test strip NE GATIVE NEGATIVE Erythrocytes detection in urine sediment by light micr oscopy NEGATIVE NEGATIVE Urine ketones detection by automated test strip NE GATIVE NEGATIVE Urine nitrite detection by test strip NEGATIVE NEGATIVE Urine total bilirubin detection by test strip NEGA TIVE NEGATIVE Urine urobilinogen measurement by automated test strip (mass/volume) 1.0 mg/dL < = 1.0 Urine leukocyte esterase detection by dipstick NEG ATIVE NEGATIVE Automated urine sediment erythrocyte cou nt by microscopy (number/high power field) NONE NRG Automated urine sediment leukocyte count by microscopy (number/high power field) NONE NRG Bacteria detection in urine sediment by light microsco py NEGATIVE NRG Squamous epithelial cells detection in u rine sediment by light microscopy RARE NRG Crystals detection in urine sediment by light microsco py NONE NRG Casts detection in urine sediment by light microscopy NONE NRG Mucus detection in urine sediment by light microscopy SMALL NRG Complete urinalysis with reflex to culture NO NRG Other elements identification in urine sediment by lig ht microscopy NO NRG Urine drug screening test - 02/15/20 03: 35 Urine phencyclidine detection by screening method NEGATIVE [...] TIVE Urine propoxyphene detection NEGATIVE N EGATIVE BNP - 02/22/20 16:39 B TYPE NATRIURETIC PEPTIDE (BNP) <4 pg/mL <100 Encounters ACCT No. Visit Date/Time Discharge Status Pt. Type Provider Facility Loc./Unit Complaint [id number] 02/26/2020 10:20:00 02/26/2020 23:59: 59 [facility] Outpatient MELITON SHAYY ESPINO [facility] [id number] 02/22/2020 15:00:00 Document Registration [id number] 02/15/2020 02:17:00 05:24:00 DIS Emergency JOSEFA ZARATE DO [facility] ER DETOX [id number] 11/29/2019 15:51:00 18:15:00 DIS Emergency TOMA FARAH APRN [facility] ER EXCESSIVE DRINKING, VO MITING
[2020-04-23] MEDS ORDERED: LACTATED RINGERS 1,000 ML IV ONE ×2 (01:54)
--- NOTE | 2020-04-23 02:01 | ED General ---
General Chief Complaint: Detox Stated Complaint: ALCOHOL WITHDRAWL Source of Information: Patient (EXTREMELY POOR HISTORIAN AND SPEECH IS VERY ERRATIC AND HAS DIFFICULTY COMPLETING SENTENCES), Old Records History of Present Illness Date Seen by Provider: Apr 23, 2020 Time Seen by Provider: 01:55 Initial Comments PT ARRIVES VIA WALKING--STATES "I LIVE STRAIGHT ACROSS" PT STATES HE IS HERE FOR "ALCOHOL WITHDRAWL" PT STATES HE DRINKS AT LEAST 2 LITERS OF ALCOHOL / VODKA TODAY AND HAS DRANK THAT MUCH TODAY, WITH HIS LAST DRINK BEING AROUND 2100 TONIGHT STATES HIS "WITHDRAWL" SYMPTOMS ARE "BAD STOMACH PAINS AND BAD HEARTBURN" STATES HE VOMITED "3 TIMES IN A ROW" "THIS AFTERNOON" STATES HE HAS NOT EATEN ANYTHING FOR THE LAST 2 DAYS "BECAUSE I'VE BEEN DRINKIN'" STATES HE HAS NOT WORKED FOR THE LAST WEEK--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 [facility] PT IS UNABLE TO STATE IF HE HAS EVER HAD A WITHDRAWL SEIZURE OR HAD "DT'S SEEN HERE 11/29/19 AND 02/15/20 FOR SAME COMPLAINTS PT HAD REPORTED ON ONE OF THOSE VISITS THAT HE WAS HOMELESS AND "TRAVELED AROUND FOR WORK" ( ORIGINALLY FROM [place] ) AND WAS "[facility]ING [employer]" PT HAD BEEN REFERRED TO [facility] OUTPATIENT ALCOHOL AND DRUG ABUSE PROGRAM ON THOSE VISITS PT DID NOT FOLLOW UP WITH [facility] OR ANYWHERE FOR ALCOHOL TREATMENT PROGRAM PT STATES HE IS SUPPOSED TO BE ON BLOOD PRESSURE MEDICATION, BUT DOESN'T TAKE IT "BECAUSE I DRINK TOO MUCH" PCP: [facility] Allergies and Home Medications Allergies Coded Allergies: cephalexin (Verified Allergy, Intermediate, 11/29/19) Home Medications Amlodipine Besylate 10 Mg Tablet, 10 MG PO BID, (Reported) Ondansetron 4 Mg Tab.rapdis, 4 MG PO Q4H Prescribed by: JOSEFA ZARATE on 04/23/20318 Pantoprazole Sodium 40 Mg Tablet.dr, 40 MG PO DAILY Prescribed by: JOSEFA ZARATE on 04/23/20318 Patient Home Medication List Home Medication List Reviewed: Yes Review of Systems Review of Systems Constitutional: no symptoms reported Respiratory: no symptoms reported Cardiovascular: no symptoms reported Gastrointestinal: see HPI, abdominal pain, nausea, vomiting Psychiatric/Neurological: No Symptoms Reported Past Jlnczwg-Glxacq-Werbdo Hx Past Med/Social Hx: Reviewed and Corrections made Patient Social History Alcohol Use: Regular Use (2 LITERS/DAY) Alcohol Beverage of Choice: Rum, Cheap Liquor, Vodka Recreational Drug Use: Yes (THC) Drug of Choice: PAST MARIJUANA USE Smoking Status: Never a Smoker Recent Foreign Travel: No Contact w/Someone Who Travel: No Recent Hopitalizations: No Seasonal Allergies Seasonal Allergies: No Past Medical History Surgeries: No Respiratory: No Cardiac: Yes (HAS NOT BEEN TAKING HIS MEDICATION-NORVASC) Hypertension Neurological: No Genitourinary: No Gastrointestinal: No Musculoskeletal: No Endocrine: No HEENT: No Cancer: No Psychosocial: Yes (ALCOHOLISM AND THC USE) Integumentary: No Blood Disorders: No Adverse Reaction/Blood Tranf: No Family Medical History Alcoholism 19 FATHER Hypertension 19 FATHER Physical Exam Vital Signs Vital Signs - First Documented 04/23/20 02:18 Temp 36.9 Pulse 89 Resp 19 B/P (MAP) 142/103 (116) Pulse Ox 99 O2 Delivery Room Air Capillary Refill : Height, Weight, BMI Height: '" Weight: lbs. oz. kg; 31.00 BMI Method: General Appearance: No Apparent Distress, WD/WN, Other (SPEECH IS STAMMERING AND ERRATIC AND HAS DIFFICULTY COMPLETING SENTENCES, SPEECH IS RAPID AND STUTTERING/STAMMERING, BUT NO SLURRING OF SPEECH AND GAIT IS STEADY. DIRTY, MALODOROUS, CONSTANT MOVEMENTS--CANNOT SIT, STAND OR LAY STILL. 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 Norm as Tested, Other (BEHAVIOR NOTED ABOVE) Skin: Normal Color, Warm/Dry, Tattoos/Piercings (MULTIPLE TATTOOS) Progress/Results/Core Measures Suspected Sepsis SIRS Temperature: Pulse: Respiratory Rate: Laboratory Tests 04/23/20 02:40: White Blood Count 4.7 Blood Pressure / Mean: Laboratory Tests 04/23/20 02:40: Creatinine 1.08, INR Comment 1.0, Platelet Count 196, Total Bilirubin 0.8 Results/Orders Lab Results Laboratory Tests Test 04/23/20 02:04 04/23/20 02:40 Range/Units Urine Color YELLOW Urine Clarity CLEAR Urine pH 8.5 5-9 Urine Specific Herrick 1.015 L 1.016-1.022 Urine Protein NEGATIVE NEGATIVE Urine Glucose (UA) NEGATIVE NEGATIVE Urine Ketones NEGATIVE NEGATIVE Urine Nitrite NEGATIVE NEGATIVE Urine Bilirubin NEGATIVE NEGATIVE Urine Urobilinogen 0.2 < = 1.0 MG/DL Urine Leukocyte Esterase NEGATIVE NEGATIVE Urine RBC (Auto) NEGATIVE NEGATIVE Urine RBC NONE /HPF Urine WBC NONE /HPF Urine Squamous Epithelial Cells RARE /HPF Urine Crystals NONE /LPF Urine Bacteria NEGATIVE /HPF Urine Casts NONE /LPF Urine Mucus SMALL H /LPF Urine Culture Indicated NO Urine Opiates Screen NEGATIVE NEGATIVE Urine Oxycodone Screen NEGATIVE NEGATIVE Urine Methadone Screen NEGATIVE NEGATIVE Urine Propoxyphene Screen NEGATIVE NEGATIVE Urine Barbiturates Screen NEGATIVE NEGATIVE Ur Tricyclic Antidepressants Screen NEGATIVE NEGATIVE Urine Phencyclidine Screen NEGATIVE NEGATIVE Urine Amphetamines Screen NEGATIVE NEGATIVE Urine Methamphetamines Screen NEGATIVE NEGATIVE Urine Benzodiazepines Screen NEGATIVE NEGATIVE Urine Cocaine Screen NEGATIVE NEGATIVE Urine Cannabinoids Screen NEGATIVE NEGATIVE White Blood Count 4.7 4.3-11.0 10^3/uL Red Blood Count 5.87 H 4.35-5.85 10^6/uL Hemoglobin 15.7 13.3-17.7 G/DL Hematocrit 45 40-54 % Mean Corpuscular Volume 77 L 80-99 FL Mean Corpuscular Hemoglobin 27 25-34 PG Mean Corpuscular Hemoglobin Concent 35 32-36 G/DL Red Cell Distribution Width 15.1 H 10.0-14.5 % Platelet Count 196 130-400 10^3/uL Mean Platelet Volume 10.2 7.4-10.4 FL Neutrophils (%) (Auto) 55 42-75 % Lymphocytes (%) (Auto) 36 12-44 % Monocytes (%) (Auto) 8 0-12 % Eosinophils (%) (Auto) 0 0-10 % Basophils (%) (Auto) 1 0-10 % Neutrophils # (Auto) 2.6 1.8-7.8 X 10^3 Lymphocytes # (Auto) 1.7 1.0-4.0 X 10^3 Monocytes # (Auto) 0.4 0.0-1.0 X 10^3 Eosinophils # (Auto) 0.0 0.0-0.3 10^3/uL Basophils # (Auto) 0.1 0.0-0.1 10^3/uL Prothrombin Time 13.8 12.2-14.7 SEC INR Comment 1.0 0.8-1.4 Activated Partial Thromboplast Time 28 24-35 SEC Sodium Level 141 135-145 MMOL/L Potassium Level 4.0 3.6-5.0 MMOL/L Chloride Level 108 H 98-107 MMOL/L Carbon Dioxide Level 19 L 21-32 MMOL/L Anion Gap 14 5-14 MMOL/L Blood Urea Nitrogen 10 7-18 MG/DL Creatinine 1.08 0.60-1.30 MG/DL Estimat Glomerular Filtration Rate > 60 BUN/Creatinine Ratio 9 Glucose Level 137 H 70-105 MG/DL Calcium Level 8.6 8.5-10.1 MG/DL Corrected Calcium 8.7 8.5-10.1 MG/DL Magnesium Level 1.7 1.6-2.4 MG/DL Total Bilirubin 0.8 0.1-1.0 MG/DL Aspartate Amino Transf (AST/SGOT) 45 H 5-34 U/L Alanine Aminotransferase (ALT/SGPT) 47 0-55 U/L Alkaline Phosphatase 104 40-136 U/L Total Protein 6.7 6.4-8.2 GM/DL Albumin 3.9 3.2-4.5 GM/DL Amylase Level 54 25-125 U/L Lipase 29 8-78 U/L Acetaminophen Level < 10 L 10-30 UG/ML Serum Alcohol 158 H <10 MG/DL My Orders Orders - JOSEFA ZARATE DO Ed Iv/Invasive Line Start (04/23/20:54) Ekg Tracing (04/23/20:54) Acetaminophen (04/23/20:54) Alcohol (04/23/20:54) Amylase (04/23/20:54) Cbc With Automated Diff (04/23/20:54) Comprehensive Metabolic Panel (04/23/20:54) Drug Screen Stat (Urine) (04/23/20:54) Lipase (04/23/20:54) Magnesium (04/23/20:54) Protime With Inr (04/23/20:54) Partial Thromboplastin Time (7/29/20 01:54) Ua Culture If Indicated (04/23/20 01:54) Ed Iv/Invasive Line Start (04/23/20 01:54) Lactated Ringers (Lr 1000 Ml Iv Solution (04/23/20 01:54) Lactated Ringers (Lr 1000 Ml Iv Solution (04/23/20 01:54) Pantoprazole Injection (Protonix Injecti (04/23/20 02:15) Ondansetron Injection (Zofran Injectio (04/23/20 02:15) Clonidine Tablet (Catapres Tablet) (04/23/20 02:15) Ondansetron Oral Dissolve Tab (Zofran (04/23/20 02:23) Ondansetron Oral Dissolve Tab (Zofran (04/23/20 02:22) Medications Given in ED Current Medications Medications Dose Ordered Sig/Talha Route Start Time Stop Time Status Last Admin Dose Admin Clonidine HCl 0.2 mg ONCE ONCE PO 04/23/20 02:15 04/23/20 02:16 DC 04/23/20 02:40 0.2 MG Lactated Ringer's 1,000 ml @ 0 mls/hr Q0M ONCE IV 04/23/20 01:54 04/23/20 01:56 DC 04/23/20 02:40 0 MLS/HR Ondansetron HCl 4 mg ONCE ONCE IVP 04/23/20 02:15 04/23/20 02:16 DC 04/23/20 02:40 4 MG Pantoprazole 40 mg ONCE ONCE IV 04/23/20 02:15 04/23/20 02:16 DC 04/23/20 02:40 40 MG Vital Signs/I&O 04/23/20 04/23/20 02:18 03:26 Temp 36.9 36.9 Pulse 89 88 Resp 19 19 B/P (MAP) 142/103 (116) 133/94 (116) Pulse Ox 99 99 O2 Delivery Room Air Capillary Refill : Progress Note : Progress Note UNEVENTFUL ER STAY BP DOWN WITH MEDICATIONS PT HAD SOME NAUSEA AND HARSH/FORCED RETCHING/DRY HEAVES--RESOLVED WITH ZOFRAN GIVEN PROTONIX NO FURTHER GI COMPLAINTS FOR REMAINDER OF ER STAY ADVISED PT THAT THERE IS NO "DETOX" UNIT HERE, AND HE DOES NOT WARRANT ADMIT HERE OR TRANSFER TO ANY OTHER FACILITY AT THIS TIME ADVISED TO FOLLOW UP WITH [facility] IN THE MORNING FOR FURTHER CARE, THROUGH THEIR OUTPATIENT ALCOHOL TREATMENT PROGRAM, IN ADDITION TO FOLLOWING UP ON BLOOD P RESSURE. ECG Initial ECG Impression Date: Apr 23, 2020 Initial ECG Impression Time: 02:04 Initial ECG Rate: 87 Initial ECG Rhythm: Normal Sinus Initial ECG Impression: Normal Departure Impression Primary Impression: Alcohol abuse Additional Impressions: Alcoholic gastritis Alcohol intoxication in active alcoholic Disposition: 01 HOME, SELF-CARE Condition: Stable Departure-Patient Inst. Referrals: [facility] Patient Instructions: Alcohol Abuse and Alcoholism (DC), Gastritis (DC) Add. Discharge Instructions: NO ALCOHOL!!! CLEAR LIQUIDS--WATER, BROTH, JELLO, GATORADE BRATS DIET--BANANAS, RICE, APPLESAUCE, TOAST, SALTINES FOLLOW UP WITH [facility] IN THE MORNING FOR FURTHER CARE, INCLUDING THEIR OUTPATIENT ALCOHOL ABUSE PROGRAM All discharge instructions reviewed with patient and/or family. Voiced understanding. Scripts Ondansetron (Ondansetron Odt) 4 Mg Tab.rapdis 4 MG PO Q4H for Nausea/Vomiting, #10 TAB Prov: JOSEFA ZARATE DO 04/23/20 Pantoprazole Sodium (Protonix) 40 Mg Tablet.dr 40 MG PO DAILY, #15 TAB Prov: JOSEFA ZARATE DO 04/23/20 JOSEFA ZARATE DO Apr 23, 2020 02:01
[2020-04-23 02:13] LABS: BILIRUBIN,URINE NEGATIVE (NEGATIVE); CLARITY,URINE CLEAR; COLOR,URINE YELLOW; GLUCOSE, URINE (UA) NEGATIVE (NEGATIVE); KETONES,URINE NEGATIVE (NEGATIVE); LEUKOCYTE ESTERASE ,URINE NEGATIVE (NEGATIVE); NITRITE,URINE NEGATIVE (NEGATIVE); PH,URINE 8.5 (5-9); PROTEIN,URINE NEGATIVE (NEGATIVE)
[2020-04-23] MEDS ORDERED: ONDANSETRON 4 MG/2 ML (SDV) Z0FRAN IVP ONE (02:15)
[2020-04-23] MEDS ORDERED: cloNIDine 0.2 MG (CATAPRES) TAB PO ONE (02:15)
[2020-04-23] MEDS ORDERED: PANTOPRAZOLE 40 MG (PROTONIX) VIAL IV ONE (02:15)
[2020-04-23 02:21] LABS: BACTERIA,URINE NEGATIVE /HPF; SQUAMOUS EPITHELIAL CELL,UR RARE /HPF
[2020-04-23] MEDS ORDERED: ONDANSETRON 4 MG (ZOFRAN) ORAL DISSOLVE TAB ONE (02:22)
[2020-04-23] MEDS ORDERED: ONDANSETRON 4 MG (ZOFRAN) ORAL DISSOLVE TAB PO STA (02:23)
[2020-04-23 02:32] LABS: AMPHETAMINE SCREEN, URINE NEGATIVE (NEGATIVE); BARBITURATE SCREEN URINE NEGATIVE (NEGATIVE); BENZODIAZEPINES SCREEN URINE NEGATIVE (NEGATIVE); CANNABINOID SCREEN, URINE NEGATIVE (NEGATIVE); COCAINE SCREEN URINE NEGATIVE (NEGATIVE); METHADONE STAT NEGATIVE (NEGATIVE); METHAMPHETAMINE SCREEN URINE S NEGATIVE (NEGATIVE); OPIATE SCREEN URINE NEGATIVE (NEGATIVE); OXYCODONE STAT NEGATIVE (NEGATIVE); PROPOXYPHENE STAT NEGATIVE (NEGATIVE); TRICYCLIC ANTIDEPRESSANTS SCRE NEGATIVE (NEGATIVE)
[2020-04-23 02:45] LABS: BASOPHILS # (AUTO) 0.1 10^3/uL (0.0-0.1); BASOPHILS % (AUTO) 1 % (0-10); EOSINOPHILS % (AUTO) 0 % (0-10); HEMATOCRIT 45 % (40-54); HEMOGLOBIN 15.7 G/DL (13.3-17.7); LYMPHOCYTES # (AUTO) 1.7 X 10^3 (1.0-4.0); LYMPHOCYTES % (AUTO) 36 % (12-44); MEAN CORPUSCULAR HEMOGLOBIN 27 PG (25-34); MEAN CORPUSCULAR HGB CONC 35 G/DL (32-36); MEAN CORPUSCULAR VOLUME 77 FL (80-99); MEAN PLATELET VOLUME 10.2 FL (7.4-10.4); MONOCYTES # (AUTO) 0.4 X 10^3 (0.0-1.0); MONOCYTES % (AUTO) 8 % (0-12); NEUTROPHILS # (AUTO) 2.6 X 10^3 (1.8-7.8); NEUTROPHILS % (AUTO) 55 % (42-75); PLATELET COUNT 196 10^3/uL (130-400); RED CELL DISTRIBUTION WIDTH 15.1 % (10.0-14.5); WHITE BLOOD COUNT 4.7 10^3/uL (4.3-11.0)
[2020-04-23 03:01] LABS: CHLORIDE 108 MMOL/L (98-107); PROTHROMBIN TIME PATIENT 13.8 SEC (12.2-14.7); SODIUM 141 MMOL/L (135-145)
[2020-04-23 03:02] LABS: ALBUMIN 3.9 GM/DL (3.2-4.5)
[2020-04-23 03:03] LABS: AMYLASE 54 U/L (25-125); CALCIUM 8.6 MG/DL (8.5-10.1)
[2020-04-23 03:04] LABS: GLUCOSE 137 MG/DL (70-105); TOTAL PROTEIN 6.7 GM/DL (6.4-8.2)
[2020-04-23 03:05] LABS: CARBON DIOXIDE 19 MMOL/L (21-32)
[2020-04-23 03:06] LABS: BILIRUBIN,TOTAL 0.8 MG/DL (0.1-1.0)
[2020-04-23 03:08] LABS: ALKALINE PHOSPHATASE 104 U/L (40-136); CREATININE SERUM 1.08 MG/DL (0.60-1.30); GFR ESTIMATED > 60
[2020-04-23 03:09] LABS: BUN/CREATININE RATIO 9
[2020-04-23 03:11] LABS: ALANINE AMINOTRANSFERASE 47 U/L (0-55); MAGNESIUM 1.7 MG/DL (1.6-2.4)
[2020-04-23 03:12] LABS: LIPASE 29 U/L (8-78)
[2020-04-23] MEDS ORDERED: ONDA4TAB11 PO (03:19)
[2020-04-23] MEDS ORDERED: PANT40TA2 PO (03:19)
[2020-04-23 03:25] LABS: ACETAMINOPHEN < 10 UG/ML (10-30)
[2020-04-23 03:26] VITALS: BP 133/94
== END 2020-04-23 03:28 | disposition home or self-care (01) ==
LOC: EDUNIT# 01:10 → ER 01:13
DX: F10.229 Alcohol dependence with intoxication, unspecified (principal); K29.20 Alcoholic gastritis without bleeding; I10 Essential (primary) hypertension; Z88.1 Allergy status to other antibiotic agents; Z91.14 Patient's other noncompliance with medication regimen; Y90.6 Blood alcohol level of 120-199 mg/100 ml
CPT/HCPCS: 80053; 80306; 81000; 82150; 83690; 83735; 85025; 85610; 85730; 93005; G0480 ×2; 36415; 80320; 80329

== ENCOUNTER 2020-04-25 11:43 | Inpatient (IN) | payer OTHER ==
[~2020-04-25] VITALS: Ht 170 cm; Wt 90.7 kg
[2020-04-25] VITALS (9 sets, daily range): BP systolic 144–165; BP diastolic 86–107
[~2020-04-25 11:43] MED LIST changes: +ONDA4TAB11 PO; +PANT40TA2 PO
[2020-04-25] MEDS ORDERED: LACTATED RINGERS 1,000 ML IV ONE ×2 (12:07→14:19)
[2020-04-25 12:15] LABS: BASOPHILS % (AUTO) 0 % (0-10); EOSINOPHILS % (AUTO) 0 % (0-10); HEMATOCRIT 47 % (40-54); LYMPHOCYTES # (AUTO) 1.5 X 10^3 (1.0-4.0); LYMPHOCYTES % (AUTO) 13 % (12-44); MEAN CORPUSCULAR HEMOGLOBIN 27 PG (25-34); MEAN CORPUSCULAR HGB CONC 36 G/DL (32-36); MEAN CORPUSCULAR VOLUME 75 FL (80-99); MEAN PLATELET VOLUME 10.2 FL (7.4-10.4); MONOCYTES # (AUTO) 0.5 X 10^3 (0.0-1.0); MONOCYTES % (AUTO) 5 % (0-12); NEUTROPHILS # (AUTO) 8.9 X 10^3 (1.8-7.8); NEUTROPHILS % (AUTO) 82 % (42-75); PLATELET COUNT 214 10^3/uL (130-400); RED CELL DISTRIBUTION WIDTH 16.2 % (10.0-14.5); WHITE BLOOD COUNT 10.9 10^3/uL (4.3-11.0)
[2020-04-25] MEDS ORDERED: LORazepam INJ 2 MG/ML (ATIVAN) VIAL IVP ONE (12:15)
--- NOTE | 2020-04-25 12:16 | ED General ---
General Stated Complaint: ALCOHOL WITHDRAWL Source of Information: Patient Exam Limitations: No Limitations (TOMA FARAH APRN) History of Present Illness Date Seen by Provider: Apr 25, 2020 Time Seen by Provider: 12:15 Initial Comments To ER sobbing and crying but otherwise nonverbal. Breath smells of alcohol. Plans are on inside out. He voices no complaints. Timing/Duration: Other Severity: Moderate Associated Systoms: Denies Symptoms (TOMA FARAH APRN) Initial Comments Arrives disheveled in crying. Difficulty with speech. Known alcoholic and states he wants detox. Otherwise not speaking very well and seems quite anxious. Was seen a few days ago for the same and had a few times in the past. States that he tried to follow up with [facility] but didn't. Due to conversation difficulty, I'm unsure of the reason why not. Admits to drinking vodka this morning but he did not state amount. Denies drinking other substances. Appears quite anxious. Parents are inside out. Reports walking in the rain to get here. Denies homelessness. Timing/Duration: Other (long-term alcoholic) Severity: Moderate (XOCHILT VELEZ MD) Allergies and Home Medications Allergies Coded Allergies: cephalexin (Verified Allergy, Intermediate, 11/29/19) Home Medications Amlodipine Besylate 10 Mg Tablet, 10 MG PO BID, (Reported) Ondansetron 4 Mg Tab.rapdis, 4 MG PO Q4H Prescribed by: JOSEFA ZARATE on 04/23/20318 Pantoprazole Sodium 40 Mg Tablet.dr, 40 MG PO DAILY Prescribed by: JOSEFA ZARATE on 04/23/20318 Patient Home Medication List Home Medication List Reviewed: Yes (TOMA FARAH APRN) Home Medication List Reviewed: Yes (XOCHILT VELEZ MD) Review of Systems Review of Systems Constitutional: see HPI EENTM: see HPI Respiratory: no symptoms reported Cardiovascular: no symptoms reported Genitourinary: no symptoms reported Musculoskeletal: no symptoms reported Skin: no symptoms reported Psychiatric/Neurological: No Symptoms Reported Hematologic/Lymphatic: No Symptoms Reported Immunological/Allergic: no symptoms reported (TOMA FARAH APRN) Cardiovascular: No chest pain, No edema Gastrointestinal: No nausea, No vomiting Psychiatric/Neurological: Anxiety, Tremors Difficult review of systems due to conversation abnormalities and anxiety. He denies pain. (XOCHILT VELEZ MD) Past Ldukclq-Qazyxq-Sgzbjz Hx Past Med/Social Hx: Reviewed Nursing Past Med/Soc Hx (XOCHILT VELEZ MD) Patient Social History Alcohol Beverage of Choice: Rum, Cheap Liquor, Vodka Drug of Choice: PAST MARIJUANA USE Recent Hopitalizations: No (TOMA FARAH APRN) Seasonal Allergies Seasonal Allergies: No (TOMA FARAH APRN) Past Medical History Surgeries: No Respiratory: No Cardiac: Yes (HAS NOT BEEN TAKING HIS MEDICATION-NORVASC) Hypertension Neurological: No Genitourinary: No Gastrointestinal: No Musculoskeletal: No Endocrine: No HEENT: No Cancer: No Psychosocial: Yes (ALCOHOLISM AND THC USE) Integumentary: No Blood Disorders: No Adverse Reaction/Blood Tranf: No (TOMA FARAH APRN) Family Medical History Reviewed Nursing Family Hx (XOCHILT VELEZ MD) Alcoholism 19 FATHER Hypertension 19 FATHER Physical Exam Vital Signs Vital Signs - First Documented 04/25/20 11:53 Temp 36.6 Pulse 90 Resp 34 B/P (MAP) 145/104 (118) Pulse Ox 98 (XOCHILT VELEZ MD) Vital Signs Capillary Refill : (TOMA FARAH APRN) Height, Weight, BMI Height: '" Weight: lbs. oz. kg; 30.00 BMI Method: General Appearance: No Apparent Distress, WD/WN, Other (appears intoxicated) Eyes: Bilateral Eye Normal Inspection, Bilateral Eye PERRL, Bilateral Eye EOMI Neck: Full Range of Motion, Normal Inspection Respiratory: No Accessory Muscle Use, No Respiratory Distress Cardiovascular: Regular Rate, Rhythm, Normal Peripheral Pulses Gastrointestinal: Normal Bowel Sounds, Non Tender, Soft Extremity: Normal Capillary Refill, Normal Inspection Neurologic/Psychiatric: Alert Skin: Normal Color, Warm/Dry (TOMA FARAH APRN) General Appearance: WD/WN, Anxious Respiratory: Lungs Clear, Normal Breath Sounds, No Accessory Muscle Use, No Respiratory Distress, Other (breath has fruity odor and he is rapidly breathing.) Cardiovascular: No Murmur, Tachycardia Gastrointestinal: Non Tender, Soft Back: Normal Inspection, No CVA Tenderness, No Vertebral Tenderness Extremity: Normal Range of Motion, Non Tender, No Calf Tenderness Neurologic/Psychiatric: Alert, Other (Anxious with difficulty with speech which may be baseline.) Skin: Normal Color, Warm/Dry (XOCHILT VELEZ MD) Progress/Results/Core Measures Suspected Sepsis SIRS Temperature: Pulse: Respiratory Rate: Laboratory Tests 04/25/20 12:05: Blood Pressure / Mean: Laboratory Tests 04/25/20 12:05: (TOMA FARAH APRN) Results/Orders Lab Results Laboratory Tests Test 04/25/20 12:05 04/25/20 12:22 04/25/20 12:37 Range/Units White Blood Count 10.9 4.3-11.0 10^3/uL Red Blood Count 6.28 H 4.35-5.85 10^6/uL Hemoglobin 17.0 13.3-17.7 G/DL Hematocrit 47 40-54 % Mean Corpuscular Volume 75 L 80-99 FL Mean Corpuscular Hemoglobin 27 25-34 PG Mean Corpuscular Hemoglobin Concent 36 32-36 G/DL Red Cell Distribution Width 16.2 H 10.0-14.5 % Platelet Count 214 130-400 10^3/uL Mean Platelet Volume 10.2 7.4-10.4 FL Neutrophils (%) (Auto) 82 H 42-75 % Lymphocytes (%) (Auto) 13 12-44 % Monocytes (%) (Auto) 5 0-12 % Eosinophils (%) (Auto) 0 0-10 % Basophils (%) (Auto) 0 0-10 % Neutrophils # (Auto) 8.9 H 1.8-7.8 X 10^3 Lymphocytes # (Auto) 1.5 1.0-4.0 X 10^3 Monocytes # (Auto) 0.5 0.0-1.0 X 10^3 Eosinophils # (Auto) 0.0 0.0-0.3 10^3/uL Basophils # (Auto) 0.0 0.0-0.1 10^3/uL Sodium Level 142 135-145 MMOL/L Potassium Level 4.5 3.6-5.0 MMOL/L Chloride Level 102 98-107 MMOL/L Carbon Dioxide Level 23 21-32 MMOL/L Anion Gap 17 H 5-14 MMOL/L Blood Urea Nitrogen 14 7-18 MG/DL Creatinine 1.13 0.60-1.30 MG/DL Estimat Glomerular Filtration Rate > 60 BUN/Creatinine Ratio 12 Glucose Level 119 H 70-105 MG/DL Calcium Level 9.0 8.5-10.1 MG/DL Corrected Calcium 8.6 8.5-10.1 MG/DL Total Bilirubin 1.3 H 0.1-1.0 MG/DL Aspartate Amino Transf (AST/SGOT) 69 H 5-34 U/L Alanine Aminotransferase (ALT/SGPT) 61 H 0-55 U/L Alkaline Phosphatase 106 40-136 U/L Total Protein 7.5 6.4-8.2 GM/DL Albumin 4.5 3.2-4.5 GM/DL Salicylates Level < 5.0 L 5.0-20.0 MG/DL Acetaminophen Level < 10 L 10-30 UG/ML Serum Alcohol 333 *H <10 MG/DL Glucometer 129 H 70-110 MG/DL Blood Gas Puncture Site LEFT RADIAL Blood Gas Patient Temperature 97.9 Arterial Blood pH 7.49 H 7.37-7.43 Arterial Blood Partial Pressure CO2 32 L 35-45 MMHG Arterial Blood Partial Pressure O2 68 L 79-93 MMHG Arterial Blood HCO3 24 23-27 MMOL/L Arterial Blood Total CO2 25.2 21.0-31.0 MMOL/L Arterial Blood Oxygen Saturation 92 L 94-100 % Arterial Blood Base Excess 1.1 -2.5-2.5 MMOL/L Remy Test POSITIVE Blood Gas Ventilator Setting NO Blood Gas Inspired Oxygen N/A (XOCHILT VELEZ MD) My Orders Orders - XOCHILT VELEZ MD Ed Iv/Invasive Line Start (04/25/20 12:07) Lactated Ringers (Lr 1000 Ml Iv Solution (04/25/20 12:07) Lorazepam Injection (Ativan Injection) (04/25/20 12:15) Arterial Blood Gas (04/25/20 12:30) Ct Head Wo (04/25/20 12:47) Lactated Ringers (Lr 1000 Ml Iv Solution (04/25/20 14:19) (XOCHILT VELEZ MD) Medications Given in ED Current Medications Medications Dose Ordered Sig/Talha Route Start Time Stop Time Status Last Admin Dose Admin Lactated Ringer's 1,000 ml @ 0 mls/hr Q0M ONCE IV 04/25/20 12:07 04/25/20 12:08 DC 04/25/20 12:22 0 MLS/HR Lactated Ringer's 1,000 ml @ 0 mls/hr Q0M ONCE IV 04/25/20 14:19 04/25/20 14:20 DC 04/25/20 14:42 0 MLS/HR Lorazepam 2 mg ONCE ONCE IVP 04/25/20 12:15 04/25/20 12:16 DC 04/25/20 12:22 2 MG (XOCHILT VELEZ MD) Vital Signs/I&O 04/25/20 11:53 Temp 36.6 Pulse 90 Resp 34 B/P (MAP) 145/104 (118) Pulse Ox 98 (XOCHILT VELEZ MD) Vital Signs/I&O Capillary Refill : (TOMA FARAH APRN) Progress Note : Progress Note Seen and evaluated by me. I agree with above except as indicated. I have directed the plan of care. IV, labs, UA, UDS, CT head, LR 1 L bolus and Ativan 2 mg IV. We will check ABG to evaluate acidotic or alkalotic state and respiratory versus metabolic. Monitor patient. 1445: CT results noted. Patient urinated on the floor. He is getting second liter of fluid. I discussed the case with Dr. Moore. He still has confabulation and alterations in mental status. EtOH is quite elevated. I do have concerns about withdrawal. Dr. Moore has kindly accepted the patient for admission, inpatient status. She is seeing him in the emergency department now. (XOCHILT VELEZ MD) ECG Initial ECG Impression Date: Apr 25, 2020 Initial ECG Impression Time: 12:03 Initial ECG Rate: 95 Initial ECG Rhythm: S.Tach Initial ECG Comparisson: Unchanged Comment Sinus tachycardia with normal axis. No evidence of ST elevation TN. Unchanged from previous. Interpreted by me. (XOCHILT VELEZ MD) Diagnostic Imaging Diagonstic Imaging: CT Plain Films/CT/US/NM/MRI: head Comments [facility]. [place], [place] NAME: NELIDAJOANNE Chin MED REC#: [id number] PT STATUS: REG ER : 1975 PHYSICIAN: XOCHILT VELEZ MD ADMIT DATE: 04/25/20/ER Draft Date of Exam:04/25/20 CT HEAD WO CLINICAL INDICATION: Patient with altered mental status, speech difficulty and ETOH abuse. EXAM: Axial CT scan of the brain without IV contrast with coronal and sagittal reformatted images. Auto Exposure Controls were utilized during the CT exam to meet ALARA standards for radiation dose reduction. COMPARISON: None. FINDINGS: There is skull streak artifact which obscures portions of the brainstem, posterior fossa, and portions of the brain near the skull. There is no evidence of acute cerebral infarct, intracranial hemorrhage, or gross mass effect. The brain parenchymal volume appears appropriate for patient's age. There is normal forte-white matter distinction. There is no significant midline shift or herniation. There is no evidence of hydrocephalus. The basal cisterns are unremarkable. The skull, extracranial soft tissue, and orbits are unremarkable. The paranasal sinuses are unremarkable. Temporal bones show no significant abnormality. IMPRESSION: Unremarkable CT scan of the brain. Dictated on workstation # [id number] Dict: 04/25/20 1319 Trans: 04/25/20 1323 [facility] [id number] Interpreted by: ARACELI BOO MD Electronically signed by: (XOCHILT VELEZ MD) Departure Communication (Admissions) Time/Spoke to Admitting Phy: 14:45 (XOCHILT VELEZ MD) Impression Primary Impression: Alcohol abuse with intoxication Additional Impression: Altered mental status Qualified Codes: R41.0 - Disorientation, unspecified Disposition: ADMITTED INPATIENT (medical) Condition: Stable Admissions Decision to Admit Reason: Admit from ER (General) Decision to Admit/Date: Apr 25, 2020 Time/Decision to Admit Time: 14:45 (XOCHILT VELEZ MD) Departure-Patient Inst. Referrals: NO,LOCAL PHYSICIAN (PCP/Family) Primary Care Physician TOMA FARAH APRN Apr 25, 2020 12:16 XOCHILT VELEZ MD Apr 25, 2020 12:55
[2020-04-25 12:45] LABS: SALICYLATE < 5.0 MG/DL (5.0-20.0)
[2020-04-25 12:48] LABS: ACETAMINOPHEN < 10 UG/ML (10-30)
[2020-04-25 12:49] LABS: ALBUMIN 4.5 GM/DL (3.2-4.5); CHLORIDE 102 MMOL/L (98-107); POTASSIUM 4.5 MMOL/L (3.6-5.0); SODIUM 142 MMOL/L (135-145)
[2020-04-25 12:50] LABS: ABG BASE EXCESS 1.1 MMOL/L (-2.5-2.5); ABG OXYGEN SATURATION 92 % (94-100); ABG PCO2 32 MMHG (35-45); ABG PH 7.49 (7.37-7.43); ABG PO2 68 MMHG (79-93); ABG TCO2 25.2 MMOL/L (21.0-31.0); ALLENS TEST POSITIVE; PATIENT TEMP 97.9; VENTILATOR NO
[2020-04-25 12:52] LABS: GLUCOSE 119 MG/DL (70-105); TOTAL PROTEIN 7.5 GM/DL (6.4-8.2)
[2020-04-25 12:53] LABS: BILIRUBIN,TOTAL 1.3 MG/DL (0.1-1.0); CARBON DIOXIDE 23 MMOL/L (21-32)
[2020-04-25 12:55] LABS: ALKALINE PHOSPHATASE 106 U/L (40-136); CREATININE SERUM 1.13 MG/DL (0.60-1.30); GFR ESTIMATED > 60
[2020-04-25 12:56] LABS: BUN/CREATININE RATIO 12
[2020-04-25 12:58] LABS: ALANINE AMINOTRANSFERASE 61 U/L (0-55)
--- NOTE | 2020-04-25 13:23 | Diagnostic Imaging Report ---
CLINICAL INDICATION: Patient with altered mental status, speech difficulty and ETOH abuse. EXAM: Axial CT scan of the brain without IV contrast with coronal and sagittal reformatted images. Auto Exposure Controls were utilized during the CT exam to meet ALARA standards for radiation dose reduction. COMPARISON: None. FINDINGS: There is skull streak artifact which obscures portions of the brainstem, posterior fossa, and portions of the brain near the skull. There is no evidence of acute cerebral infarct, intracranial hemorrhage, or gross mass effect. The brain parenchymal volume appears appropriate for patient's age. There is normal forte-white matter distinction. There is no significant midline shift or herniation. There is no evidence of hydrocephalus. The basal cisterns are unremarkable. The skull, extracranial soft tissue, and orbits are unremarkable. The paranasal sinuses are unremarkable. Temporal bones show no significant abnormality. IMPRESSION: Unremarkable CT scan of the brain. Dictated by: Dictated on workstation # [id number]
--- NOTE | 2020-04-25 14:52 | History & Physical-Hospitalist ---
History of Present Illness HPI/Chief Complaint Pt is a 45yoCM with a PMH of alcohol abuse who presented to the ER due to concern about alcohol withdrawal. He is acutely intoxicated. He is unable to tell me much of his history other than that he drinks a lot and is worried about withdrawing. He occasionally answered a few questions regarding his alcohol intake but I am unsure if these were accurate. He otherwise just stared and did not speak. Per ER notes he arrived drying and asking for detox. He apparently was here just a few say ago for alcohol intoxication and was referred to [facility]. I am unsure if he made that appointment. The ER visit from 2 days ago states he drinks at least 2L of alcohol per day. Source: patient Date Seen 04/25/20 Time Seen by a Provider: 14:52 Attending Physician PCP No,Local Physician Referring Physician Date of Admission Home Medications & Allergies Home Medications Reviewed patient Home Medication Reconciliation performed by pharmacy medication reconciliations r and d lab technician and/or nursing. Patients Allergies have been reviewed. Allergies Allergies Coded Allergies cephalexin (Verified Allergy, Intermediate, 11/29/19) Past Rygbror-Jfdhbh-Lefcwl Hx Past Med/Social Hx: Reviewed Nursing Past Med/Soc Hx Patient Social History Alcohol Use: Regular Use Alcohol Beverage of Choice: Rum, Cheap Liquor, Vodka Recreational Drug Use: Yes (THC) Drug of Choice: PAST MARIJUANA USE Smoking Status: Never a Smoker Type Used: Cigarettes Recent Foreign Travel: No Contact w/other who traveled: No Recent Hopitalizations: No Recent Infectious Disease Expo: No Seasonal Allergies Seasonal Allergies: No Past Medical History Cardiac: Hypertension History of Blood Disorders: No Adverse Reaction to Blood Hall: No Family History Reviewed Nursing Family Hx Alcoholism 19 FATHER Hypertension 19 FATHER Hypertension Review of Systems ROS-Unable to Obtain: answers questions unreliably Constitutional: see HPI Physical Exam Physical Exam Vital Signs Vital Signs - First Documented 04/25/20 11:53 Temp 36.6 Pulse 90 Resp 34 B/P (MAP) 145/104 (118) Pulse Ox 98 Capillary Refill : Less Than 3 Seconds Height, Weight, BMI Height: '" Weight: lbs. oz. kg; 31.00 BMI Method: General Appearance: Anxious, Obese, Other (anxious appearing man laying in bed, pants on inside out) HEENT: PERRL/EOMI; No Scleral Icterus (L), No Scleral Icterus (R); Other (dry mucuous mebranes) Neck: Normal Inspection, Supple Respiratory: Lungs Clear, No Accessory Muscle Use, No Respiratory Distress Cardiovascular: Regular Rate, Rhythm, No Murmur, Normal Peripheral Pulses Gastrointestinal: Normal Bowel Sounds, Non Tender, Soft Neurologic/Psychiatric: Alert, Aphasia (seemed to have difficulty finding the right words), Disoriented Results Results/Procedures Labs Laboratory Tests 04/25/20 12:05 Patient resulted labs reviewed. Imaging: Reviewed Imaging Report Imaging [facility], [place] NAME: JOANNE KRAUSE [facility] REC#: [id number] PT STATUS: REG ER : 1975 PHYSICIAN: XOCHILT VELEZ MD ADMIT DATE: 04/25/20/ER Draft Date of Exam:04/25/20 CT HEAD WO CLINICAL INDICATION: Patient with altered mental status, speech difficulty and ETOH abuse. EXAM: Axial CT scan of the brain without IV contrast with coronal and sagittal reformatted images. Auto Exposure Controls were utilized during the CT exam to meet ALARA standards for radiation dose reduction. COMPARISON: None. FINDINGS: There is skull streak artifact which obscures portions of the brainstem, posterior fossa, and portions of the brain near the skull. There is no evidence of acute cerebral infarct, intracranial hemorrhage, or gross mass effect. The brain parenchymal volume appears appropriate for patient's age. There is normal forte-white matter distinction. There is no significant midline shift or herniation. There is no evidence of hydrocephalus. The basal cisterns are unremarkable. The skull, extracranial soft tissue, and orbits are unremarkable. The paranasal sinuses are unremarkable. Temporal bones show no significant abnormality. IMPRESSION: Unremarkable CT scan of the brain. Dictated on workstation # [id number] Dict: 04/25/20 1319 Trans: 04/25/20 1323 [facility] [id number] Interpreted by: ARACELI BOO MD Electronically signed by: Assessment/Plan Admission Diagnosis Altered Mental Status Admission Status: Inpatient Order (span 2 midnights) Reason for Inpatient Admission: see below Assessment and Plan Altered Mental Status Alcohol Intoxication Alcohol level 333 Does not have a significant anion gap to account for a toxic alcohol ingestion Will admit with [facility] protocol as he reports he has withdrawn/seized before [employer] Repairer consult CT Head negative UDS when able to urinate HTN BP mildly elevated Resume home amlodipine Trend DVT ppx: SCDs Diagnosis/Problems Diagnosis/Problems (1) Essential (primary) hypertension (2) Dehydration (3) Transaminitis (4) Altered mental status Status: Acute Qualifiers: Altered mental status type: disorientation Qualified Codes: R41.0 - Disorientation, unspecified (5) Alcohol abuse with intoxication Status: Acute WAYLON BRITO MD Apr 25, 2020 14:52
[2020-04-25] MEDS ORDERED: THIAMINE INJECTION 100 MG, FOLIC ACID INJECTION 1 MG, MAGNESIUM SULFATE 2 GM, VITAMIN M... IV SCH ×5 (15:11)
[2020-04-25] MEDS ORDERED: 1/2 NS IV SOLUTION 1,000 ML IV PRN (15:11)
[2020-04-25] MEDS ORDERED: MELATONIN 3 MG TABLET PO PRN (15:15)
[2020-04-25] MEDS ORDERED: ANTACID SUSP 30 ML UDC (MYLANTA) PO PRN (15:15)
[2020-04-25] MEDS ORDERED: LORazepam INJ 2 MG/ML (ATIVAN) VIAL IM/IV PRN (15:15)
[2020-04-25] MEDS ORDERED: SENNA W/DOCUSATE (SENOKOT S) TABLET PO PRN (15:15)
[2020-04-25] MEDS ORDERED: D5 1/2 NS 1000 ML IV SOLUTION 1,000 ML IV PRN (15:15)
[2020-04-25 15:22] LABS: BILIRUBIN,URINE NEGATIVE (NEGATIVE); CLARITY,URINE CLEAR; COLOR,URINE YELLOW; GLUCOSE, URINE (UA) NEGATIVE (NEGATIVE); KETONES,URINE NEGATIVE (NEGATIVE); LEUKOCYTE ESTERASE ,URINE NEGATIVE (NEGATIVE); NITRITE,URINE NEGATIVE (NEGATIVE); PROTEIN,URINE NEGATIVE (NEGATIVE)
[2020-04-25 15:29] LABS: BACTERIA,URINE NEGATIVE /HPF
[2020-04-25] MEDS ORDERED: hydrALAZINE (APESOLINE) 20 MG/ML VIAL IV PRN (15:30)
[2020-04-25 15:33] LABS: AMPHETAMINE SCREEN, URINE NEGATIVE (NEGATIVE); BARBITURATE SCREEN URINE NEGATIVE (NEGATIVE); BENZODIAZEPINES SCREEN URINE NEGATIVE (NEGATIVE); CANNABINOID SCREEN, URINE NEGATIVE (NEGATIVE); COCAINE SCREEN URINE NEGATIVE (NEGATIVE); METHADONE STAT NEGATIVE (NEGATIVE); METHAMPHETAMINE SCREEN URINE S NEGATIVE (NEGATIVE); OPIATE SCREEN URINE NEGATIVE (NEGATIVE); OXYCODONE STAT NEGATIVE (NEGATIVE); PROPOXYPHENE STAT NEGATIVE (NEGATIVE); TRICYCLIC ANTIDEPRESSANTS SCRE NEGATIVE (NEGATIVE)
--- NOTE | 2020-04-25 15:54 | NUR ---
JOANNE KRAUSE JR admitted to room 414-1, with an admitting diagnosis of AMS, AND ALCOHOL DETOX, on 04/25/20 from ED via BED, accompanied by STAFF. JOANNE KRAUSE JR introduced to surroundings, call light, bed controls, phone, TV, temperature control, lights, meal times, smoking policy, visitor policy, side rail policy, bathrooms and showers. Patient Rights given to patient in the handbook. JOANNE KRAUSE JR verbalizes understanding that [facility] is not responsible for the loss or damage to any personal effects or valuables that are kept in the patients posession during their hospitalization. The following Patient Care Plans were discussed with the PATINT: Discharge Planning,KNOWLEDGE AND ALCOHOL DETOX.
[2020-04-25] MEDS: LORazepam 1 MG (ATIVAN) TAB PO PRN ×3 (16:30→20:32)
[2020-04-25] MEDS: ONDANSETRON 4 MG/2 ML (SDV) Z0FRAN IV PRN (16:32)
--- NOTE | 2020-04-25 17:01 | NUR ---
GREGORIA NEIL STARTED, BED ALARM ON, BED PADDED FOR SEIZURE PRECAUTIONS, O2 ON AT 3 LITERS PER NC, TELEMETRY ON, ANXIOUS, DIFFICULTY ANSWERING QUESTIONS, ATIVAN 2MG GIVEN PER SCALE, TREMORS OF HANDS, SWEATING, C/O NAUSEA, ZOFRAN GIVEN,
[2020-04-25] MEDS: THIAMINE INJECTION 100 MG, FOLIC ACID INJECTION 1 MG, MAGNESIUM SULFATE 2 GM, VITAMIN M... IV SCH ×5 (17:19)
[2020-04-25] MEDS: NS IV 1000 ML 1,000 ML IV SCH (17:19)
--- OUTSIDE RECORDS SUMMARY | 2020-04-25 17:32 | XMS REPORT | Continuity of Care Document ---
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 Ot I10 ESSENTIAL (PRIMARY) HYPERTENSION 12/05/2019 TOMA FARAH APRN Ot Y90 .7 BLOOD ALCOHOL LEVEL OF 200-239 MG/100 ML 12/05/2019 TOMA FARAH APRN Ot Z88 .1 ALLERGY STATUS TO OTHER ANTIBIOTIC AGENT 02/15/2020 JOE ZARATE DOA Valeriy Ot F10.129 ALCOHOL ABUSE WITH INTOXICATION, UNSPECI 02/15/2020 JOSEFA ZARATE DO Ot F10.229 ALCOHOL DEPENDENCE WITH INTOXICATION, UN 02/15/2020 ELLIOT BELTRAN JOSEFA K Ot I10 ESSENTIAL (PRIMARY) HYPERTENSION 02/15/2020 JOSEFA ZARATE DO Ot Z82.49 FAMILY HX OF ISCHEM HEART DIS AND OTH DI 02/15/2020 JOSEFA ZARATE DO Ot Z87.891 PERSONAL HISTORY OF NICOTINE DEPENDENCE 02/15/2020 JOSEFA ZARATE DO Ot Z88.1 ALLERGY STATUS TO OTHER ANTIBIOTIC AGENT 02/15/2020 ELLIOT BELTRAN JOSEFA Valeriy Ot Z91.14 PATIENT'S OTHER NONCOMPLIANCE WITH MEDIC 04/23/2020 ELLIOT DO, JOSEFA K Ot F10.10 ALCOHOL ABUSE, UNCOMPLICATED 04/23/2020 ELLIOT DO, JOSEFA K Ot F10.229 ALCOHOL DEPENDENCE WITH INTOXICATION, UN 04/23/2020 ELLIOT DO, JOSEFA K Ot I10 ESSENTIAL (PRIMARY) HYPERTENSION 04/23/2020 ELLIOT DO, JOSEFA K Ot K29.20 ALCOHOLIC GASTRITIS WITHOUT BLEEDING 04/23/2020 ELLIOT DO, JOSEFA K Ot Y90.6 BLOOD ALCOHOL LEVEL OF 120-199 MG/100 ML 04/23/2020 ELLIOT DO, JOSEFA K Ot Z88.1 ALLERGY STATUS TO OTHER ANTIBIOTIC AGENT 04/23/2020 ELLIOT DO, JOSEFA K Ot Z91.14 PATIENT'S OTHER NONCOMPLIANCE WITH MEDIC 04/25/2020 ELLIOT DO, JOSEFA K Ot F10.10 ALCOHOL ABUSE, UNCOMPLICATED 04/25/2020 ELLIOT DO, JOSEFA K Ot F10.229 ALCOHOL DEPENDENCE WITH INTOXICATION, UN 04/25/2020 ELLIOT DO, JOSEFA K Ot I10 ESSENTIAL (PRIMARY) HYPERTENSION 04/25/2020 ELLIOT DO, JOSEFA K Ot K29.20 ALCOHOLIC GASTRITIS WITHOUT BLEEDING 04/25/2020 ELLIOT DO, JOSEFA K Ot Y90.6 BLOOD ALCOHOL LEVEL OF 120-199 MG/100 ML 04/25/2020 ELLIOT DO, JOSEFA K Ot Z88.1 ALLERGY STATUS TO OTHER ANTIBIOTIC AGENT 04/25/2020 ELLIOT DO, JOSEFA K Ot Z91.14 PATIENT'S OTHER NONCOMPLIANCE WITH MEDIC [...] TYPE NATRIURETIC PEPTIDE (BNP) <4 pg/mL <100 Complete urinalysis with reflex to cultu re - 04/23/20 02:04 Urine color determination YELLOW NRG Urine clarity [...] urinalysis with reflex to culture NO NRG Urine drug screening test - 04/23/20 02: 04 Urine phencyclidine detection by screening method NEGATIVE [...] Urine propoxyphene detection NEGATIVE N EGATIVE Complete blood count (CBC) with automate d white blood cell (WBC) differential - 04/23/20 02:40 Blood leukocytes automated count (number/volume) 4.7 10*3/uL 4.3-11.0 Blood erythrocytes automated count (number/volume) 5.87 10*6/uL 4.35-5.85 Venous blood hemoglobin measurement (mass/volume) 15.7 g/dL 13.3-17.7 Blood hematocrit (volume fraction) 45 % 40-54 Automated erythrocyte mean corpuscular volume 77 [ foz_us] 80-99 Automated erythrocyte mean corpuscular h emoglobin (mass per erythrocyte) 27 pg 25-34 Automated erythrocyte mean corpuscular h emoglobin concentration measurement (mass/volume) 35 g/dL 32-36 Automated erythrocyte distribution width ratio 15. 1 % 10.0- 14.5 Automated blood platelet count (count/volume) 196 10*3/uL 130-400 Automated blood platelet mean volume measurement 10.2 [foz_us] 7.4-10.4 Automated blood neutrophils/100 leukocytes 55 % 42-75 Automated blood lymphocytes/100 leukocytes 36 % 12-44 Blood monocytes/100 leukocytes 8 % 0-12 Automated blood eosinophils/100 leukocytes 0 % 0-10 Automated blood basophils/100 leukocytes 1 % 0-10 Blood neutrophils automated count (number/volume) 2.6 10*3 1.8-7.8 Blood lymphocytes automated count (number/volume) 1.7 10*3 1.0-4.0 Blood monocytes automated count (number/volume) 0. 4 10*3 0.0-1.0 Automated eosinophil count 0.0 10*3/uL 0 .0-0.3 Automated blood basophil count (count/volume) 0.1 10*3/uL 0.0-0.1 Comprehensive metabolic panel - 04/23/20 02:40 Serum or plasma sodium measurement (moles/volume) 141 mmol/L 135-145 Serum or plasma potassium measurement (moles/volume) 4.0 mmol/L 3.6-5.0 Serum or plasma chloride measurement (moles/volume) 108 mmol/L 98-107 Carbon dioxide 19 mmol/L 21-32 Serum or plasma anion gap determination (moles/volume) 14 mmol/L 5-14 Serum or plasma urea nitrogen measurement (mass/volume ) 10 mg/dL 7-18 Serum or plasma creatinine measurement (mass/volume) 1.08 mg/dL 0.60-1.30 Serum or plasma urea nitrogen/creatinine mass ratio 9 NRG Serum or plasma creatinine measurement w ith calculation of estimated glomerular filtration rate > NRG Serum or plasma glucose measurement (mass/volume) 137 mg/dL 70-105 Serum or plasma calcium measurement (mass/volume) 8.6 mg/dL 8.5-10.1 Serum or plasma total bilirubin measurement (mass/volu me) 0.8 mg/dL 0.1-1.0 Serum or plasma alkaline phosphatase mindy surement (enzymatic activity/volume) 104 U/L 40-136 Serum or plasma aspartate aminotransfera se measurement (enzymatic activity/volume) 45 U/L 5-34 Serum or plasma alanine aminotransferase measurement (enzymatic activity/volume) 47 U/L 0-55 Serum or plasma protein measurement (mass/volume) 6.7 g/dL 6.4-8.2 Serum or plasma albumin measurement (mass/volume) 3.9 g/dL 3.2-4.5 CALCIUM CORRECTED 8.7 mg/dL 8.5-10.1 Magnesium - 04/23/20 02:40 Magnesium 1.7 mg/dL 1.6-2.4 PT panel in platelet poor plasma by coag ulation assay - 04/23/20 02:40 Prothrombin time (PT) in platelet poor plasma by coagu lation assay 13.8 s 12.2-14.7 INR in platelet poor plasma or blood by coagulation as say 1.0 0.8-1.4 Activated partial thromboplastin time (a PTT) in platelet poor plasma bycoagulation assay - 04/23/20 02:40 Activated partial thromboplastin time (a PTT) in platelet poor plasma bycoagulation assay 28 s 24-35 Serum or plasma amylase measurement (enz ymatic activity/volume) - 04/23/20 02:40 Serum or plasma amylase measurement (enzymatic activit y/volume) 54 U/L 25-125 Lipase - 04/23/20 02:40 Lipase 29 U/L 8-78 Serum or plasma acetaminophen measuremen t (mass/volume) - 04/23/20 02:40 Serum or plasma acetaminophen measurement (mass/volume ) < ug/mL 10-30 Serum or plasma ethanol measurement (mas s/volume) - 04/23/20 02:40 Serum or plasma ethanol measurement (mass/volume) 158 mg/dL <10 Complete blood count (CBC) with automate d white blood cell (WBC) differential - 04/25/20 12:05 Blood leukocytes automated count (number/volume) 10.9 10*3/uL 4.3-11.0 Blood erythrocytes automated count (number/volume) 6.28 10*6/uL 4.35-5.85 Venous blood hemoglobin measurement (mass/volume) 17.0 g/dL 13.3-17.7 Blood hematocrit (volume fraction) 47 % 40-54 Automated erythrocyte mean corpuscular volume 75 [ foz_us] 80-99 Automated erythrocyte mean corpuscular h emoglobin (mass per erythrocyte) 27 pg 25-34 Automated erythrocyte mean corpuscular h emoglobin concentration measurement (mass/volume) 36 g/dL 32-36 Automated erythrocyte distribution width ratio 16. 2 % 10.0- 14.5 Automated blood platelet count (count/volume) 214 10*3/uL 130-400 Automated blood platelet mean volume measurement 10.2 [foz_us] 7.4-10.4 Automated blood neutrophils/100 leukocytes 82 % 42-75 Automated blood lymphocytes/100 leukocytes 13 % 12-44 Blood monocytes/100 leukocytes 5 % 0-12 Automated blood eosinophils/100 leukocytes 0 % 0-10 Automated blood basophils/100 leukocytes 0 % 0-10 Blood neutrophils automated count (number/volume) 8.9 10*3 1.8-7.8 Blood lymphocytes automated count (number/volume) 1.5 10*3 1.0-4.0 Blood monocytes automated count (number/volume) 0. 5 10*3 0.0-1.0 Automated eosinophil count 0.0 10*3/uL 0 .0-0.3 Automated blood basophil count (count/volume) 0.0 10*3/uL 0.0-0.1 Comprehensive metabolic panel - 04/25/20 12:05 Serum or plasma sodium measurement (moles/volume) 142 mmol/L 135-145 Serum or plasma potassium measurement (moles/volume) 4.5 mmol/L 3.6-5.0 Serum or plasma chloride measurement (moles/volume) 102 mmol/L 98-107 Carbon dioxide 23 mmol/L 21-32 Serum or plasma anion gap determination (moles/volume) 17 mmol/L 5-14 Serum or plasma urea nitrogen measurement (mass/volume ) 14 mg/dL 7-18 Serum or plasma creatinine measurement (mass/volume) 1.13 mg/dL 0.60-1.30 Serum or plasma urea nitrogen/creatinine mass ratio 12 NRG Serum or plasma creatinine measurement w ith calculation of estimated glomerular filtration rate > NRG Serum or plasma glucose measurement (mass/volume) 119 mg/dL 70-105 Serum or plasma calcium measurement (mass/volume) 9.0 mg/dL 8.5-10.1 Serum or plasma total bilirubin measurement (mass/volu me) 1.3 mg/dL 0.1-1.0 Serum or plasma alkaline phosphatase mindy surement (enzymatic activity/volume) 106 U/L 40-136 Serum or plasma aspartate aminotransfera se measurement (enzymatic activity/volume) 69 U/L 5-34 Serum or plasma alanine aminotransferase measurement (enzymatic activity/volume) 61 U/L 0-55 Serum or plasma protein measurement (mass/volume) 7.5 g/dL 6.4-8.2 Serum or plasma albumin measurement (mass/volume) 4.5 g/dL 3.2-4.5 CALCIUM CORRECTED 8.6 mg/dL 8.5-10.1 Serum or plasma salicylates measurement (mass/volume) - 04/25/20 12:05 Serum or plasma salicylates measurement (mass/volume) < mg/dL 5.0-20.0 Serum or plasma acetaminophen measuremen t (mass/volume) - 04/25/20 12:05 Serum or plasma acetaminophen measurement (mass/volume ) < ug/mL 10-30 Serum or plasma ethanol measurement (mas s/volume) - 04/25/20 12:05 Serum or plasma ethanol measurement (mass/volume) 333 mg/dL <10 Capillary blood glucose measurement by g lucometer (mass/volume) - 04/25/20 12:22 Capillary blood glucose measurement by glucometer (mas s/volume) 129 mg/dL 70-110 Arterial blood gas measurement - 0 12:37 Blood pCO2 32 mm[Hg] 35-45 Blood pO2 68 mm[Hg] 79-93 Arterial blood bicarbonate measurement (moles/volume) 24 mmol/L 23-27 Arterial blood base excess by calculation 1.1 mmol /L -2.5-2.5 Arterial blood oxygen saturation measurement 92 % 94-100 * Inhaled oxygen flow rate N/A NRG Arterial blood pH measurement with patient temperature correction 7.49 7.37-7.43 Arterial blood carbon dioxide, total measurement (mole s/volume) 25.2 mmol/L 21.0-31.0 Body site LEFT RADIAL NRG Assessment of wrist artery patency prior to arterial p uncture POSITIVE NRG Setting of ventilation mode NO NR G Measurement of body temperature 97.9 NRG Complete urinalysis with reflex to cultu re - 04/25/20 15:15 Urine color determination YELLOW NRG Urine clarity determination CLEAR NR G Urine pH measurement by test strip 7.0 5-9 Specific gravity of urine by test strip 1.010 1.016-1.022 Urine protein assay by test strip, [...] sediment by light microsco py NEGATIVE NRG Crystals detection in urine sediment by light microsco py NONE NRG Casts detection in urine sediment by light microscopy NONE NRG Mucus detection in urine sediment by light microscopy NEGATIVE NRG Complete urinalysis with reflex to culture NO NRG Urine drug screening test - 04/25/20 15: 15 Urine phencyclidine detection by screening method NEGATIVE [...] TIVE Urine propoxyphene detection NEGATIVE N EGATIVE Encounters ACCT No. Visit Date/Time Discharge Status Pt. Type Provider Facility Loc./Unit Complaint [id number] 02/26/2020 10:20:00 02/26/2020 23:59: 59 CLS Out[facility] [id number] 02/22/2020 15:00:00 Document Registration [id number] 04/23/2020 01:13:00 020 03:28:00 DIS Emergency ELLIOT DOJOSEFA [facility] ER ALCOHOL WITHDRAWL [id number] 02/15/2020 02:17:00 05:24:00 [facility] [id number] 11/29/2019 15:51:00 18:15:00 DIS Emergency TOMA FARAH APRN [facility] ER EXCESSIVE DRINKING, VO MITING [id number] 04/25/2020 14:52:[address] Inpatient DARYL SUÁREZ, WAYLON Gardiner [address] AMS
--- NOTE | 2020-04-25 17:45 | NUR ---
PATIENT VOIDED ON HIS SANGEETHA, SHOES AND FLOOR, REFUSED TO TAKE JEANS AND SHOES OFF, O2 ON PER NC AT 3 LITERS, O2 SAT 96 PERCENT TELLESITTER CONTINUED
--- OUTSIDE RECORDS SUMMARY | 2020-04-25 18:53 | XMS REPORT | Continuity of Care Document ---
Author Organization Unknown Address Unknown Phone Unavailable Allergies Active Description Code Type Severity Reaction Onset Reported/Identified Relationship to Patient Clinical Status Yes cephalexin [id number] Drug Allerg y Moderate N/A 11/29/2019 Medications [...] USE, UNSPECIFIED WITH INTOXICATI 12/05/2019 TOMA FARAH FURNACE MASON Ot I10 ESSENTIAL (PRIMARY) HYPERTENSION 12/05/2019 TOMA FARAH APRN Ot Y90 .7 BLOOD ALCOHOL LEVEL OF 200-239 MG/100 ML 12/05/2019 TOMA FARAH APRN Ot Z88 .1 ALLERGY STATUS TO OTHER ANTIBIOTIC AGENT 02/15/2020 JOE AZRATE DOA Valeriy Ot F10.129 ALCOHOL ABUSE WITH [...] Status Pt. Type Provider Facility Loc./Unit Complaint [id number] 02/26/2020 10:20:00 02/26/2020 23:59: 59 CLS [facility] [id number] 02/22/2020 15:00:00 Document Registration [id number] 04/23/2020 01:13:00 020 03:28:00 DIS Emergency ELLIOT DOJOSEFA [facility] ER ALCOHOL WITHDRAWL [id number] 02/15/2020 02:17:00 05:24:00 [facility] ER DETOX [id number] 11/29/2019 15:51:00 18:15:00 DIS Emergency TOMA FARAH APRN [facility] ER EXCESSIVE DRINKING, VO MITING [id number] 04/25/2020 14:52:[address] Inpatient DARYL SUÁREZ, WAYLON Gardiner [address] AMS
[2020-04-26] MEDS: NS IV 1000 ML 1,000 ML IV SCH ×3 (00:22→15:33)
[2020-04-26] MEDS: LORazepam 1 MG (ATIVAN) TAB PO PRN (00:32)
[2020-04-26] MEDS: ONDANSETRON 4 MG/2 ML (SDV) Z0FRAN IV PRN ×3 (00:54→15:49)
--- NOTE | 2020-04-26 01:15 | NUR ---
DR BRITO CALLED REGARDING PT N/V UNCONTROLLED WITH ZOFRAN. NEW ORDERS RECEIVED, SEE ORDER HX
[2020-04-26] MEDS: PROMETHAZINE INJ 25 MG/ML (PHENERGAN) AMP IVP PRN ×3 (01:21→18:18)
[2020-04-26] MEDS: LORazepam INJ 2 MG/ML (ATIVAN) VIAL IV PRN ×9 (01:45→21:34)
[2020-04-26 04:00] VITALS: BP 151/101
[2020-04-26 06:01] LABS: HEMOGLOBIN 15.4 G/DL (13.3-17.7); MEAN PLATELET VOLUME 10.1 FL (7.4-10.4); RED CELL DISTRIBUTION WIDTH 15.4 % (10.0-14.5); WHITE BLOOD COUNT 5.4 10^3/uL (4.3-11.0)
[2020-04-26 06:13] LABS: CHLORIDE 107 MMOL/L (98-107); POTASSIUM 4.4 MMOL/L (3.6-5.0); SODIUM 140 MMOL/L (135-145)
[2020-04-26 06:14] LABS: CALCIUM 8.2 MG/DL (8.5-10.1)
[2020-04-26 06:15] LABS: GLUCOSE 87 MG/DL (70-105)
[2020-04-26 06:16] LABS: CARBON DIOXIDE 20 MMOL/L (21-32)
[2020-04-26 06:19] LABS: GFR ESTIMATED > 60
[2020-04-26 06:20] LABS: BUN/CREATININE RATIO 15
[2020-04-26 08:00] VITALS: BP 137/93
[2020-04-26] MEDS: PANTOPRAZOLE 40 MG (PROTONIX) TAB PO SCH (08:17)
[2020-04-26] MEDS: amLODIPine 5 MG (NORVASC) TAB PO SCH (08:17)
--- NOTE | 2020-04-26 10:14 | NUR ---
PT ASLEEP DURING 1000 CIWA.
[2020-04-26] MEDS: THIAMINE INJECTION 100 MG, FOLIC ACID INJECTION 1 MG, MAGNESIUM SULFATE 2 GM, VITAMIN M... IV SCH ×5 (10:41)
--- NOTE | 2020-04-26 11:29 | Progress Note - Hospitalist ---
Subjective HPI/CC On Admission Date Seen by Provider: Apr 26, 2020 Time Seen by Provider: 11:26 Pt is a 45yoCM with a PMH of alcohol abuse who presented to the ER due to concern about alcohol withdrawal. He is acutely intoxicated. He is unable to tell me much of his history other than that he drinks a lot and is worried about withdrawing. He occasionally answered a few questions regarding his alcohol intake but I am unsure if these were accurate. He otherwise just stared and did not speak. Per ER notes he arrived drying and asking for detox. He apparently was here just a few say ago for alcohol intoxication and was referred to [facility]. I am unsure if he made that appointment. The ER visit from 2 days ago states he drinks at least 2L of alcohol per day. Subjective/Events-last exam Pt reports feeling nauseated but better than yesterday. Mentation much improved and able to speak in whole sentences. States medicine is helping. Also complains of a headache. Objective Exam Vital Signs Vital Signs Date Time Temp Pulse Resp B/P (MAP) Pulse Ox O2 Delivery O2 Flow Rate FiO2 04/26/20 10:43 98 Nasal Cannula 3.00 04/26/20 08:00 37.0 100 31 137/93 (108) Capillary Refill : Less Than 3 Seconds General Appearance: No Apparent Distress, WD/WN, Obese Cardiovascular: Regular Rate, Rhythm, No Murmur Gastrointestinal: Normal Bowel Sounds, Soft Neurologic/Psychiatric: Alert, Oriented x3 Results/Procedures Lab Laboratory Tests 04/25/20 12:05 04/26/20 05:27 Patient resulted labs reviewed. Imaging: Reviewed Imaging Report Assessment/Plan Assessment and Plan Assess & Plan/Chief Complaint Altered Mental Status due to Alcohol Intoxication Alcohol Abuse and Dependence Nausea Transaminitis Alcohol level 333 Continue CIWA protocol as he reports he has withdrawn/seized before [employer] Certified Pedorthotist consult CT Head negative UDS negative Zofran and Phenergan HTN BP well controlled Continue amlodipine Trend DVT ppx: SCDs Diagnosis/Problems Diagnosis/Problems (1) Essential (primary) hypertension (2) Dehydration (3) Transaminitis (4) Altered mental status Status: Acute Qualifiers: Altered mental status type: disorientation Qualified Codes: R41.0 - Disorientation, unspecified (5) Alcohol abuse with intoxication Status: Acute Clinical Quality Measures DVT/VTE Risk/Contraindication: Risk Factor Score Per Nursin RFS Level Per Nursing on Admit: 4+=Very High WAYLON BRITO MD Apr 26, 2020 11:29
[2020-04-26 12:00] VITALS: BP 141/96
[2020-04-26 15:30] VITALS: BP 150/96
--- NOTE | 2020-04-26 15:57 | NUR ---
PT CONTINUING TO HAVE LOOSE STOOLS. AT 1530 HE WAS UNABLE TO MAKE IT TO TOILET IN TIME AND WAS INCONTINENT. DR BRITO NOTIFIED AND SHE ORDERED IMODIUM 2 MG PRN LOOSE STOOLS MAX 8 MG DAILY.
[2020-04-26] MEDS: LOPERAMIDE 2 MG (IMODIUM) TABLET PO PRN ×2 (16:36→18:18)
[2020-04-26 19:54] VITALS: BP 154/94
[2020-04-26 23:43] VITALS: BP 164/94
[2020-04-27] MEDS: NS IV 1000 ML 1,000 ML IV SCH ×3 (00:12→16:48)
[2020-04-27 04:13] VITALS: BP 141/98
--- NOTE | 2020-04-27 07:01 | NUR ---
Pt asleep for CIWA assessment from 2200 - 0600.
[2020-04-27 08:00] VITALS: BP 155/104
[2020-04-27] MEDS: PANTOPRAZOLE 40 MG (PROTONIX) TAB PO SCH (08:18)
[2020-04-27] MEDS: amLODIPine 5 MG (NORVASC) TAB PO SCH (08:18)
[2020-04-27] MEDS: LORazepam 1 MG (ATIVAN) TAB PO PRN ×5 (08:18→22:24)
[2020-04-27] MEDS: THIAMINE INJECTION 100 MG, FOLIC ACID INJECTION 1 MG, MAGNESIUM SULFATE 2 GM, VITAMIN M... IV SCH ×5 (08:48)
[2020-04-27 12:00] VITALS: BP 135/55
--- NOTE | 2020-04-27 12:03 | Progress Note - Hospitalist ---
Subjective HPI/CC On Admission Date Seen by Provider: Apr 27, 2020 Time Seen by Provider: 12:01 Pt is a 45yoCM with a PMH of alcohol abuse who presented to the ER due to concern about alcohol withdrawal. He is acutely intoxicated. He is unable to tell me much of his history other than that he drinks a lot and is worried about withdrawing. He occasionally answered a few questions regarding his alcohol intake but I am unsure if these were accurate. He otherwise just stared and did not speak. Per ER notes he arrived drying and asking for detox. He apparently was here just a few say ago for alcohol intoxication and was referred to [facility]. I am unsure if he made that appointment. The ER visit from 2 days ago states he drinks at least 2L of alcohol per day. Subjective/Events-last exam Pt reports still not feeling well. Fidgeting in bed. Asked if he felt anxious and he denied it. Otherwise no complaints. Denied any needs. Objective Exam Vital Signs Vital Signs Date Time Temp Pulse Resp B/P (MAP) Pulse Ox O2 Delivery O2 Flow Rate FiO2 04/27/20 10:47 95 Nasal Cannula 2.00 04/27/20 08:00 36.6 71 20 155/104 (121) Capillary Refill : Less Than 3 Seconds General Appearance: No Apparent Distress, WD/WN Respiratory: Lungs Clear, No Respiratory Distress Cardiovascular: Regular Rate, Rhythm, No Murmur Gastrointestinal: Normal Bowel Sounds, Soft Neurologic/Psychiatric: Alert, Oriented x3 Results/Procedures Lab Patient resulted labs reviewed. 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 Head negative UDS negative Zofran and Phenergan Mentation much improved, now a&ox3 HTN BP well controlled Continue amlodipine Trend DVT ppx: SCDs Diagnosis/Problems Diagnosis/Problems (1) Essential (primary) hypertension (2) Dehydration (3) Transaminitis (4) Altered mental status Status: Acute Qualifiers: Altered mental status type: disorientation Qualified Codes: R41.0 - Disorientation, unspecified (5) Alcohol abuse with intoxication Status: Acute Clinical Quality Measures DVT/VTE Risk/Contraindication: Risk Factor Score Per Nursin RFS Level Per Nursing on Admit: 4+=Very High WAYLON BRITO MD Apr 27, 2020 12:03
[2020-04-27 16:46] VITALS: BP 148/94
[2020-04-27 19:30] VITALS: BP 135/88
[2020-04-28] VITALS: BP 168/103
[2020-04-28 03:42] VITALS: BP 131/83
[2020-04-28] MEDS: NS IV 1000 ML 1,000 ML IV SCH ×4 (03:56→23:35)
[2020-04-28] MEDS: LORazepam 1 MG (ATIVAN) TAB PO PRN ×2 (06:28→20:13)
[2020-04-28 07:56] VITALS: BP 167/106
--- NOTE | 2020-04-28 08:00 | NUR ---
B/P 167/106. NORVASC GIVEN ORDERED.
[2020-04-28] MEDS: amLODIPine 5 MG (NORVASC) TAB PO SCH (08:02)
[2020-04-28] MEDS: PANTOPRAZOLE 40 MG (PROTONIX) TAB PO SCH (08:02)
--- NOTE | 2020-04-28 10:08 | History & Physical ---
BETTIEXIMENA MED STUDENT 04/28/20 1008: History of Present Illness History of Present Illness Reason for visit/HPI Alcohol Abuse/Withdraw Patient is a 45 yo male with a PMH of Alcohol abuse, HTN and CHF that presented to the ED 3 days ago for alcohol withdraw. Today, he does not complain of any pain or other symptoms other than some confusion/unsureness. He states that since being admitted he feels about 50% better and that he feels pretty good this morning. He did not complain of any other problems other than sometimes he has trouble getting a full breath of air. He is currently taking Amlodipine, Losartan, and Sertraline. He has also been given Lorazepam for his alcohol withdraw and has been given an infusion of Thiamine. He has had multiple episodes of alcohol withdraw in the past, with the last instance being about 3 months ago. He stated during that instance he had seizures. He is concerned about possible losing his job. Date of Admission Apr 25, 2020 at 14:52 Date Seen by a Provider: Apr 28, 2020 Time Seen by a Provider: 09:30 I consulted on this patient on 04/28/20 10:00 Attending Physician Mercy Moore MD Admitting Physician No,Local Physician Consult Allergies and Home Medications Allergies Coded Allergies: cephalexin (Verified Allergy, Intermediate, 11/29/19) Home Medications Amlodipine Besylate 10 Mg Tablet, 10 MG PO DAILY, (Reported) Omeprazole 20 Mg Capsule.dr, 20 MG PO DAILY, (Reported) Sertraline HCl 50 Mg Tablet, 50 MG PO DAILY, (Reported) LAST FILLED 03/24/2020 #30 30DS Trazodone HCl 100 Mg Tablet, 100 MG PO HS PRN for SLEEP, (Reported) Patient Home Medication List Home Medication List Reviewed: Yes Past Uakinyj-Abfgxe-Zgzwfa Hx Patient Social History Employed/Student: employed Alcohol Use: Regular Use (Pt admits to Regular alcohol consumption up to 1-2 L iters of hard liquor/day) Number of Drinks Today: 0 Alcohol Beverage of Choice: Rum, Cheap Liquor, Vodka Recreational Drug Use: Yes (THC) Drug of Choice: PAST MARIJUANA USE Smoking Status: Never a Smoker Type Used: Cigarettes Recent Foreign Travel: No Contact w/other who traveled: No Recent Hopitalizations: No Recent Infectious Disease Expo: No Seasonal Allergies Seasonal Allergies: No Surgeries No Respiratory No (Pt states that it is sometimes hard for him to breathe.) Currently Using CPAP: No Currently Using BIPAP: No Cardiovascular Yes (HAS NOT BEEN TAKING HIS MEDICATION-NORVASC) Hypertension Neurological No (Paitent alert and oriented to person, place, and situation) Genitourinary No Gastrointestinal No Musculoskeletal No Endocrine History of Endocrine Disorders: No HEENT History of HEENT Disorders: No Cancer No Psychosocial History of Psychiatric Problem: Yes (ALCOHOLISM AND THC USE) Integumentary History of Skin or Integumenta: No Blood Transfusions History of Blood Disorders: No Adverse Reaction to a Blood Tr: No Family Medical History Significant Family History: Hypertension Family Hx: Alcoholism 19 FATHER Hypertension 19 FATHER Review of Systems Constitutional: see HPI Respiratory: dyspnea on exertion (Sometimes it is hard to get enough air when walking around.) Genitourinary: no symptoms reported Psychiatric/Neurological: Other (Pt reports a slight sense of unsureness.) Physical Exam Vital Signs Vital Signs - First Documented 04/25/20 04/25/20 04/25/20 04/25/20 11:40 11:53 16:02 17:35 Temp 36.6 Pulse 97 Resp 34 B/P (MAP) 144/98 (113) Pulse Ox 98 O2 Delivery Room Air O2 Flow Rate 2.00 Capillary Refill : Less Than 3 SecondsLess Than 3 Seconds Height, Weight, BMI Height: '" Weight: lbs. oz. kg; 31.38 BMI Method: General Appearance: No Apparent Distress Respiratory: Lungs Clear, Normal Breath Sounds, No Accessory Muscle Use, No Respiratory Distress Cardiovascular: Regular Rate, Rhythm, No Edema, No Gallop, No Murmur, Normal Peripheral Pulses Gastrointestinal: Normal Bowel Sounds, Non Tender Rectal: Deferred Extremity: Normal Inspection, No Pedal Edema Neurologic/Psychiatric: Alert, Oriented x3, No Motor/Sensory Deficits, Normal Mood/Affect Skin: Normal Color, Warm/Dry Lymphatic: No Adenopathy Assessment/Plan Assessment and Plan Problems: (1) Essential (primary) hypertension Status: Chronic Assessment & Plan: Have patient continue amlodipine and ARB. Have patient consider a lower sodium diet. If HTN is not well controlled, consider adding a dieretic. (2) Dehydration Status: Resolved Assessment & Plan: Give IV normal saline at a rate of 130m/l per hour. Make sure patient gets enough fluids. (3) Transaminitis Status: Acute Assessment & Plan: Re-check LFTs, ensure that patient is not consuming alcohol. (4) Altered mental status Status: Resolved Qualifiers: Qualified Codes: R41.0 - Disorientation, unspecified (5) Alcohol abuse with intoxication Status: Resolved Assessment & Plan: Offer patient counseling, therapy, or rehab for alcohol abuse. Consider setting up a stop date for alcohol consumption. If patient is committed to quit drinking, prescribe Antabuse. Admission Diagnosis Admission Status: Observation Clinical Quality Measures DVT/VTE Risk/Contraindication: Risk Factor Score Per Nursin RFS Level Per Nursing on Admit: 4+=Very High Copy Copies To 1: MARLO SWEENEY MD, HOLLY R MD 04/28/201946: History of Present Illness History of Present Illness Reason for visit/HPI Agree with above HPI Allergies and Home Medications Allergies Coded Allergies: cephalexin (Verified Allergy, Intermediate, 11/29/19) Home Medications Amlodipine Besylate 10 Mg Tablet, 10 MG PO DAILY, (Reported) Omeprazole 20 Mg Capsule.dr, 20 MG PO DAILY, (Reported) Sertraline HCl 50 Mg Tablet, 50 MG PO DAILY, (Reported) LAST FILLED 03/24/2020 #30 30DS Trazodone HCl 100 Mg Tablet, 100 MG PO HS PRN for SLEEP, (Reported) Patient Home Medication List Home Medication List Reviewed: Yes Past Pcvtpkx-Paelyf-Zvmttl Hx Family Medical History Family Hx: Alcoholism 19 FATHER Hypertension 19 FATHER Review of Systems Constitutional: no symptoms reported EENTM: no symptoms reported Respiratory: No cough; dyspnea on exertion (Sometimes it is hard to get enough air when walking around.); No short of breath Cardiovascular: no symptoms reported; No chest pain, No edema, No palpitations Gastrointestinal: No constipation; diarrhea; No loss of appetite, No nausea, No vomiting Genitourinary: no symptoms reported; No dysuria, No frequency, No hematuria Musculoskeletal: no symptoms reported; No back pain, No joint pain, No muscle pain Skin: no symptoms reported Psychiatric/Neurological: No Symptoms Reported Physical Exam General Appearance: No Apparent Distress, WD/WN HEENT: PERRL/EOMI Neck: Full Range of Motion Respiratory: Chest Non Tender, Lungs Clear, Normal Breath Sounds, No Accessory Muscle Use, No Respiratory Distress Cardiovascular: Regular Rate, Rhythm, No Edema, No Murmur, Normal Peripheral Pulses Gastrointestinal: Normal Bowel Sounds, Non Tender, Soft Back: No CVA Tenderness, No Vertebral Tenderness Extremity: Normal Capillary Refill, Normal Inspection, Normal Range of Motion, Non Tender, No Calf Tenderness, No Pedal Edema Neurologic/Psychiatric: Alert, Oriented x3, No Motor/Sensory Deficits, Normal Mood/Affect, malt roaster II-XII Norm as Tested, Other (anxious) Skin: Normal Color, Warm/Dry Lymphatic: No Adenopathy Assessment/Plan Assessment and Plan Problems: (1) Dehydration Status: Resolved (2) Essential (primary) hypertension Status: Chronic Assessment & Plan: 04/28: Increase norvasc 10 mg daily, added losartan 50 mg daily, will continue to montior (3) Transaminitis Status: Acute Assessment & Plan: 04/28: Likely 2/2 EtOH abuse, will repeat CMP in AM (4) Alcohol abuse with intoxication Status: Resolved (5) Altered mental status Status: Resolved Qualifiers: Qualified Codes: R41.0 - Disorientation, unspecified (6) Alcohol withdrawal Status: Acute Qualifiers: Qualified Codes: F10.230 - Alcohol dependence with withdrawal, uncomplicated Assessment & Plan: 04/28: patient has h/o withdraw seizure, doing well today, interested in outpatient treatment, info given about [facility] Copy Copies To 1: MARLO SWEENEY MD Supervisory-Addendum Brief Verification & Attestation Participated in pt care: history, physical Personally performed: exam, history Care discussed with: Medical Student Procedures: n/a Verification and Attestation of Medical Student E/M Service A medical student performed and documented this service in my presence. I reviewed and verified all information documented by the medical student and made modifications to such information, when appropriate. I personally performed the physical exam and medical decision making. Marlo Sweneey, Apr 28, 2020,19:50 XIMENA ALEXANDRE MED STUDENT Apr 28, 2020 10:08 MARLO SWEENEY MD Apr 28, 2020 19:47
--- NOTE | 2020-04-28 10:32 | NUR ---
CM/SS: Visited with pt as to drug and alcohol issues as per consult Plan: Pt will return to his home when deemed appropriate - pt is NOT open to seeking in patient treatment at this time. Pt is open to outpatient services and requested information Summary: Pt is in bed at the time of the visit. Pt reports that he does not have his cell phone and has no phone numbers. Pt report she walked to the hospital as he has had situations like this before. He reports working for [employer] out of [place], [place] with the [employer] and that he lives in [place], [place]. Pt is given the work number [phone] per the facesheet for his job, however he indicates that is not the correct number and that he needs to phone number to the [place], [place] office. This worker is unable to locate the number for [place], [place] office. Pt is open to share that he has had issues with alcohol in the past. He is not open to inpatient treatment at this time, and has [facility] the past. He is open to this at this time. Pt is tearful at the end of the visit, as he sat up in his bed, however he would not indicate why he was emotional and tearful. He is provided the alcohol treatment information, as well as [facility] through [facility]. This worker will follow up.
[2020-04-28] MEDS ORDERED: SERT50TA9 PO (10:40)
[2020-04-28] MEDS ORDERED: OMEP20CA18 PO (10:40)
[2020-04-28] MEDS ORDERED: TRAZ-227 PO (10:40)
--- NOTE | 2020-04-28 10:54 | NUR ---
I SPOKE WITH THE PATIENT, WENT THROUGH THE EXTERNAL MED HISTORY AND SPOKE WITH [facility] IN [place] TO COMPLETE THIS MED REC. SERTRALINE 50MG WAS LAST FILLED ON 03/24/2020 #30 30 DS HYDROCHLOROTHIAZIDE 25MG AND POTASSIUM 10MEQ WERE BOTH FILLED RECENTLY FROM [facility] BUT PATIENT SAYS HE IS NOT TAKING THEM.
[2020-04-28 12:37] VITALS: BP 151/91
--- NOTE | 2020-04-28 14:07 | NUR ---
"RD ASSESSMENT PMHx: ETOH use/abuse; THC use PT INTERACTION: Pt was awake and pleasant during consult for MST score. Pt states current appetite is pretty good, though it had been poor prior to admit. Note avg PO intake 25-50% x2d, per chart review. Pt states following a regular diet at home, and has no issues with chewing/swallowing food. Pt states no recent issues with nausea, vomiting, constipation, or diarrhea. Note last BM was 8/3 and pt currently on bowel regimen of senna PRN per chart review. Pt states recent wt fluctuations both up and down, but was unsure of amounts. Note no recent wt changes x5mon, per chart review. Upon visual assessment, pt appeared to be adequately nourished with no visible signs of muscle/fat wasting, and a BMI of 31.4. Given current appetite, wt hx, and visual assessment, pt does not meet criteria for malnutrition per ASPEN guidelines. ABNORMAL NUTRITION-RELATED LAB VALUES LOW: Ca 8.2 HIGH: Est. kcal needs: 1375 kcal | 15 kcal/kg Est. Pro needs: 73 g Pro | 0.8 g Pro/kg PES STATEMENT: Inadequate oral intake (NI-2.1) related to loss of appetite as evidenced by pt interview | avg PO intake 25-50% x2d INTERVENTION: Continue with current diet order of Regular diet. Continue with current supplementation order of Ensure Enlive with meals TID, for increased kcal intake. Provides 350 kcal and 13 g Pro per serving. Will continue to follow and reassess as pt needs, intake, and status change. MONITOR/EVALUATE: PO Intake; Plan of Care; Hydration Status; Weight Status; Lab Values Magdalena Chiang, MS, RD, LD"
[2020-04-28 15:50] VITALS: BP 147/93
[2020-04-28 19:35] VITALS: BP 179/78
[2020-04-28] MEDS: LOSARTAN 50 MG (COZAAR) TAB PO SCH (20:13)
[2020-04-29 00:50] VITALS: BP 136/89
[2020-04-29] MEDS: NS IV 1000 ML 1,000 ML IV SCH ×2 (00:58→08:40)
[2020-04-29 04:00] VITALS: BP 135/84
[2020-04-29 05:21] LABS: BASOPHILS % (AUTO) 1 % (0-10); EOSINOPHILS # (AUTO) 0.1 10^3/uL (0.0-0.3); EOSINOPHILS % (AUTO) 2 % (0-10); HEMATOCRIT 42 % (40-54); HEMOGLOBIN 14.6 G/DL (13.3-17.7); LYMPHOCYTES # (AUTO) 1.4 X 10^3 (1.0-4.0); LYMPHOCYTES % (AUTO) 31 % (12-44); MEAN CORPUSCULAR HEMOGLOBIN 27 PG (25-34); MEAN CORPUSCULAR HGB CONC 35 G/DL (32-36); MEAN CORPUSCULAR VOLUME 78 FL (80-99); MEAN PLATELET VOLUME 10.5 FL (7.4-10.4); MONOCYTES # (AUTO) 0.3 X 10^3 (0.0-1.0); MONOCYTES % (AUTO) 7 % (0-12); NEUTROPHILS # (AUTO) 2.7 X 10^3 (1.8-7.8); NEUTROPHILS % (AUTO) 59 % (42-75); PLATELET COUNT 130 10^3/uL (130-400); WHITE BLOOD COUNT 4.6 10^3/uL (4.3-11.0)
[2020-04-29 05:55] LABS: EOSINOPHILS % (MANUAL) 1 %; LYMPHOCYTES % (MANUAL) 35 %; MONOCYTES % (MANUAL) 7 %; NEUTROPHILS % (MANUAL) 57 %; POIKILOCYTOSIS SLIGHT
[2020-04-29 05:57] LABS: ALANINE AMINOTRANSFERASE 29 U/L (0-55); ALBUMIN 3.7 GM/DL (3.2-4.5); ALKALINE PHOSPHATASE 97 U/L (40-136); BILIRUBIN,TOTAL 0.6 MG/DL (0.1-1.0); BUN/CREATININE RATIO 22; CALCIUM 8.6 MG/DL (8.5-10.1); CARBON DIOXIDE 18 MMOL/L (21-32); CHLORIDE 110 MMOL/L (98-107); CREATININE SERUM 0.95 MG/DL (0.60-1.30); GFR ESTIMATED > 60; GLUCOSE 107 MG/DL (70-105); POTASSIUM 4.6 MMOL/L (3.6-5.0); SODIUM 139 MMOL/L (135-145); TOTAL PROTEIN 6.5 GM/DL (6.4-8.2)
[2020-04-29 08:00] VITALS: BP 146/100
[2020-04-29] MEDS: LOSARTAN 50 MG (COZAAR) TAB PO SCH (08:37)
[2020-04-29] MEDS: PANTOPRAZOLE 40 MG (PROTONIX) TAB PO SCH (08:38)
[2020-04-29] MEDS ORDERED: amLODIPine 10 MG (NORVASC) TAB PO SCH (09:00)
--- NOTE | 2020-04-29 10:22 | NUR ---
PRIOR TO B/P MEDICATIONS PULSE WAS 85 BPM AND B/P WAS 146/100
--- NOTE | 2020-04-29 11:32 | Discharge Summary ---
Diagnosis/Chief Complaint Date of Admission Apr 25, 2020 at 14:52 Date of Discharge 04/29/2020 Admission Diagnosis Admission Diagnosis See problem list Discharge Diagnosis See below Problems/Diagnosis: (1) Alcohol withdrawal Assessment & Plan: 04/29: Patient's need for Ativan decreased and ready to go home, will have appt with [facility] today after d/c from hosp Qualifiers: Qualified Codes: F10.230 - Alcohol dependence with withdrawal, uncomplicated Status: Acute (2) Essential (primary) hypertension Assessment & Plan: 04/29: Blood pressure medication adjusted during admission, Norvasc 10 mg and Losartan 50 mg daily, will need to establish with PCP Status: Chronic (3) Transaminitis Assessment & Plan: 04/29: 2/2 to EtOH use, discussed with patient the need for cessation of EtOH use to prevent developing cirrhosis or other end stage liver diseases Status: Acute (4) Alcohol intoxication Status: Resolved Resolution Date/Time: 04/28/20 @ 21:13 (5) Dehydration Status: Resolved Resolution Date/Time: 04/28/20 @ 19:47 Discharge Summary-Simple/Stand Consultations Discharge Physical Examination Allergies: Coded Allergies: cephalexin (Verified Allergy, Intermediate, 11/29/19) Vitals & I&Os Vital Sign - Last 12Hours Date Time Temp Pulse Resp B/P (MAP) Pulse Ox O2 Delivery O2 Flow Rate FiO2 04/29/20 10:35 97 Room Air 04/29/20 08:00 36.1 85 18 146/100 (115) 04/29/20 08:00 1.00 Intake and Output 04/29/20 00:00 Intake Total 2570 ml Output Total 1100 ml Balance 1470 ml General Appearance: Alert, Oriented X3, Cooperative, No Acute Distress HEENT: Mucous Memb Moist/[place] Respiratory: Clear to Auscultation, Normal Air Movement Cardiovascular: Regular Rate, No Murmurs Abdominal: Normal Bowel Sounds, Soft, No Tenderness, No Masses Extremities: No Edema, No Tenderness/Swelling Skin: No Rashes Neuro: Normal Speech, Strength at 5/5 X4 Ext, Sensation Intact, Cranial Nerves 3-12 NL Psych/Mental Status: Other (Anxious) Hospital Course Was the Problem List Reviewed?: Yes See final discharge diagnosis. Discussion & Recommendations 45 yo with a significant EtOH history that presented with acute EtOH int oxication and desire to quit drinking. Patient was admitted due to h/o withdraw seizure and multiple admissions for withdraw. Patient was started on CIWS protocol with ativan after 24 hrs after admission. He had manageable withdraw symptoms and is feeling much better at time of discharge. He is agreeable with go to [facility] for outpatient treatment because he states that he is not able to do inpatient due to job commitments. Will have intake today after discharge. Discharge Condition at discharge stable Instructions to patient/family Please see electronic discharge instructions given to patient. Discharge Medications Reviewed and agree with Discharge Medication list on patient's Discharge Instruction sheet Clinical Quality Measures DVT/VTE Risk/Contraindication: Risk Factor Score Per Nursin RFS Level Per Nursing on Admit: 4+=Very High Copy Copies To 1: CHACHA IRAHETA MD, HOLLY R MD Apr 29, 2020 11:32
[2020-04-29] MEDS ORDERED: LOSA50TA63 PO (11:36)
--- NOTE | 2020-04-29 11:37 | Discharge Summary ---
Discharge [facility] Reconcile Patient Problems Problems Reviewed?: Yes Discharge Medications New, Converted or Re-Newed RX: Transmitted to Pharmacy New Medications: Losartan Potassium (Losartan Potassium) 50 Mg Tablet 50 MG PO DAILY, #30 TAB Continued Medications: Amlodipine Besylate (Norvasc) 10 Mg Tablet 10 MG PO DAILY, TAB Omeprazole (Omeprazole) 20 Mg Capsule.dr 20 MG PO DAILY, CAP Sertraline HCl (Sertraline HCl) 50 Mg Tablet 50 MG PO DAILY, TAB LAST FILLED 03/24/2020 #30 30DS Discontinued Medications: Trazodone HCl (Trazodone HCl) 100 Mg Tablet 100 MG PO HS PRN for SLEEP, TAB Patient Instructions Goal/Follow Up Appt: You have an appt today @ 1 PM at [facility] Activity & Diet Discharge Diet: No Restrictions Activity as Tolerated: Yes Orders-Post D/C & Referrals Pneu Vac Indicated: Yes MARLO IBANEZ MD Apr 29, 2020 11:37
--- NOTE | 2020-04-29 11:44 | NUR ---
CM/SS: Visited with pt as to plan for discharge and his desire to seek treatment for his alcohol use Plan: Pt to return home - he is undecided if he wants to do inpatient or outpatient treatment or none at all. He has been given information on both. Summary: Pt is tearful again, with discussing what to do. He seems to be a little agitated. He is reminded of the resources and options that he has. He seems to be open at this time. He would like to give it some more thought. This worker will follow up. Dr. Sweeney has set up an appointment for pt to see someone at [facility] at 1:00pm. Pt is nervous and agitated about where he is going and what he is to do. Alise, RN talks with pt and reassures him just to get to the appt and he will have some resources available to him. A taxi cab is arranged to get pt to his home. He lives a few blocks from the hospital. Pt verbalizes understanding of the location of the appointment at [facility] at 1:00pm, Pt is wished well.
--- NOTE | 2020-04-29 11:47 | Progress Note ---
XIMENA ALEXANDRE MED STUDENT 04/29/20 1147: Subjective Subjective/Events-last exam Patient states that he feels a little bit better than he did yesterday. He states that his reflux has gotten a little better. He complains of feeling panicked about leaving, increased bowel movements, dry heaving, nightmares accompanies with sweating and chills, and states that the nightmares have never happened before. He states that he has concerns over alcohol cessation and is interested in speaking to a social service liaison more about it. He also notes that his balance and coordination has improves since his admission as well. Focused Exam Respiratory: Chest Non Tender, Lungs Clear, Normal Breath Sounds, No Accessory Muscle Use, No Respiratory Distress Cardiovascular: Regular Rate, Rhythm, No Edema, No Gallop, No JVD, No Murmur, Normal Peripheral Pulses Peripheral Pulses: 3+ Radial Pulses (R) Skin: normal color, warm/dry Objective Exam Last Set of Vital Signs Vital Signs Date Time Temp Pulse Resp B/P (MAP) Pulse Ox O2 Delivery O2 Flow Rate FiO2 04/29/20 10:35 97 Room Air 04/29/20 08:00 36.1 85 18 146/100 (115) 04/29/20 08:00 1.00 Capillary Refill : Less Than 3 SecondsLess Than 3 Seconds I&O Intake and Output 04/29/20 00:00 Intake Total 3170 ml Output Total 1350 ml Balance 1820 ml Intake Oral 2170 ml IV Total 1000 ml Output Urine Total 1350 ml # Voids 3 # Bowel Movements 1 Daily Weight Change Unsure/Unresponsive General: Alert, Oriented X3 Lungs: Clear to Auscultation Heart: Regular Rate, No Murmurs Abdomen: Normal Bowel Sounds, No Tenderness, No Hepatosplenomegaly, No Masses Extremities: No Clubbing, No Cyanosis, No Edema, Normal Pulses Neuro: Normal Gait, Normal Speech Results/Procedures Lab Laboratory Tests 04/29/20 05:00: White Blood Count 4.6, Red Blood Count 5.41, Hemoglobin 14.6, Hematocrit 42, Mean Corpuscular Volume 78L, Mean Corpuscular Hemoglobin 27, Mean Corpuscular Hemoglobin Concent 35, Red Cell Distribution Width 16.0H, Platelet Count 130, Mean Platelet Volume 10.5H, Neutrophils (%) (Auto) 59, Lymphocytes (%) (Auto) 31, Monocytes (%) (Auto) 7, Eosinophils (%) (Auto) 2, Basophils (%) (Auto) 1, Neutrophils # (Auto) 2.7, Lymphocytes # (Auto) 1.4, Monocytes # (Auto) 0.3, Eosinophils # (Auto) 0.1, Basophils # (Auto) 0.0, Neutrophils % (Manual) 57, Lymphocytes % (Manual) 35, Monocytes % (Manual) 7, Eosinophils % (Manual) 1, Poikilocytosis SLIGHT, Sodium Level 139, Potassium Level 4.6, Chloride Level 110H, Carbon Dioxide Level 18L, Anion Gap 11, Blood Urea Nitrogen 21H, Creatinine 0.95, Estimat Glomerular Filtration Rate > 60, BUN/Creatinine Ratio 22, Glucose Level 107H, Calcium Level 8.6, Corrected Calcium 8.8, Total Bilirubin 0.6, Aspartate Amino Transf (AST/SGOT) 29, Alanine Aminotransferase (ALT/SGPT) 29, Alkaline Phosphatase 97, Total Protein 6.5, Albumin 3.7 Assessment/Plan Assessment/Plan Admission Status: Inpatient Order (span 2 midnights) Reason for Inpatient Admission: Alcohol Withdraw (1) Alcohol withdrawal Status: Acute Assessment & Plan: Have patient speak with social service liaison. Set up an appointment with the [facility] substance abuse department and encourage him to go and set up a plan for sobriety. Give him a schedule for the AA meetings that are taking place in [facility] and encourage him to attend those as well. Encourage him to receive outpatient treatment for his abuse problem. Qualifiers: Qualified Codes: F10.230 - Alcohol dependence with withdrawal, uncomplicated Clinical Quality Measures DVT/VTE Risk/Contraindication: Risk Factor Score Per Nursin RFS Level Per Nursing on Admit: 4+=Very High MARLO SWEENEY MD 04/29/202111: Supervisory-Addendum Brief Supervisory Addendum Verification and Attestation of Medical Student E/M Service A medical student performed and documented this service in my presence. I reviewed and verified all information documented by the medical student and made modifications to such information, when appropriate. I personally performed the physical exam and medical decision making. Marlo Sweeney, Apr 29, 2020,21:11 SEE DISCHARGE SUMMARY XIMENA ALEXANDRE MED STUDENT Apr 29, 2020 11:47 MARLO SWEENEY MD Apr 29, 2020 21:12
[2020-04-29 12:00] VITALS: BP 176/109
[2020-04-29 12:10] VITALS: BP 146/100
== END 2020-04-29 12:10 | disposition home or self-care (01) | DRG 897 ==
LOC: EDUNIT# 11:43 → ER 11:46 → 4TH 14:52
PROVIDERS: ADMIT Family Medicine; ATTEND Family Medicine
DX: F10.239 Alcohol dependence with withdrawal, unspecified (principal); F10.229 Alcohol dependence with intoxication, unspecified; Y90.8 Blood alcohol level of 240 mg/100 ml or more; R41.82 Altered mental status, unspecified; I11.0 Hypertensive heart disease with heart failure; I50.9 Heart failure, unspecified; E86.0 Dehydration; R74.0 Nonspecific elevation of levels of transaminase and lactic acid dehydrogenase [LDH]
CPT/HCPCS: 36415; 70450; 80048; 80053; 80306; 80320; 80329; 81000; 82805; 82962; 85007; 85025; 85027; 93005; 94760; 96361; 96374